=== PATIENT | male | born 1960 ===

== ENCOUNTER 2016-06-23 23:31 | Emergency (ER) | payer MEDICAID, OTHER ==
[2016-06-24 00:23] VITALS: O2SAT 98
[2016-06-24 06:15] VITALS: BP 167/90; PULSE 97; RESP 16; TEMP 98.3
--- NOTE | 2016-06-24 06:16 | C.PDOC ---
History Of Present Illness 56 y/o male c/o rash and all over itching. pt lives in nursing home and may be getting bitten by bugs. denies fevers. Time Seen by Provider: 06/24/16 04:38 Chief Complaint (Nursing): Substance Abuse Past Medical History Reviewed: Historical Data, Nursing Documentation, Vital Signs Vital Signs: Last Vital Signs Temp 98.3 F 06/24/16 06:14 Pulse 97 H 06/24/16 06:14 Resp 16 06/24/16 06:14 BP 167/90 H 06/24/16 06:14 Pulse Ox 98 06/24/16 06:26 - Medical History PMH: Diabetes, Graves' Disease, HTN, Seizures (alcohol related) Denies: Chronic Kidney Disease Surgical History: No Surg Hx - [facility] Procedures DETOXIFICATION SERVICES FOR SUBSTANCE ABUSE TREATMENT (07/11/15) INJECT/INFUSE NEC (03/22/13) Family History: States: Unknown Family Hx - Social History Hx Tobacco Use: No Hx Alcohol Use: Yes Hx Substance Use: No - Immunization History Hx Tetanus Toxoid Vaccination: No Hx Influenza Vaccination: No Hx Pneumococcal Vaccination: No Review Of Systems Constitutional: Negative for: Fever, Chills Cardiovascular: Negative for: Chest Pain, Palpitations Respiratory: Negative for: Cough, Shortness of Breath Gastrointestinal: Negative for: Nausea, Vomiting, Abdominal Pain Musculoskeletal: Negative for: Neck Pain Skin: Positive for: Rash Neurological: Negative for: Weakness, Numbness Physical Exam - Physical Exam Appears: Non-toxic, No Acute Distress, Unkempt Skin: Normal Color, Warm, Dry, Other (scattered excoriated areas to arms and lower left abdomen, some 1-2 mm erythematous papules to abdomen, scattered patches of skin tunnel man in color. ) Head: Atraumatic, Normacephalic Chest: Symmetrical, No Deformity Cardiovascular: No Rhythm Regular, Murmur Respiratory: Normal Breath Sounds, No Rales, No Rhonchi, No Wheezing ED Course And Treatment O2 Sat by Pulse Oximetry: 98 Medical Decision Making Medical Decision Making: pt slept comfortably all night. will give rx for permetherin. f/u med clinic. Disposition Counseled Patient/Family Regarding: Diagnosis, Need For Followup, Rx Given - Disposition Referrals: [facility] [Outside] [facility] [Outside] Disposition: HOME/ ROUTINE Disposition Time: 06:25 Condition: STABLE Additional Instructions: Use cream as directed. Wash bedding and all clothes in hot water. Follow up [facility] medical clinic. Prescriptions: Permethrin [Elimite] 60 gm TP ONCE #1 cream..g. Instructions: Scabies (ED) Forms: General Discharge Instructions - Clinical Impression Clinical Impression: Scabies
== END 2016-06-24 06:51 | disposition home or self-care (01) ==
LOC: C.ER 23:31
DX: B86 Scabies (principal)

== ENCOUNTER 2016-07-08 12:04 | Observation (INO) | payer MEDICAID, OTHER ==
[2016-07-08 13:24] LABS: EOS # 0.1 K/uL (0.0-0.7); LYMPH # 1.3 K/uL (1.0-4.3); MONO # 0.4 K/uL (0.0-0.8); WHITE BLOOD COUNT 3.2 K/uL (4.8-10.8)
[2016-07-08 13:28] LABS: BASO % 1.5 % (0.0-2.0); EOS % 2.7 % (0.0-4.0); HEMATOCRIT 32.9 % (35.0-51.0); MEAN CELL VOLUME 72.6 fL (80.0-94.0); MEAN CORPUSCULAR HEMOGLOBIN 22.7 pg (27.0-31.0); MEAN CORPUSCULAR HGB CONC 31.2 g/dL (33.0-37.0); MEAN PLATELET VOLUME 7.8 fL (7.2-11.7); MONO % 11.2 % (0.0-10.0); NRBC % 0.8 % (0.0-2.0); RED CELL DISTRIBUTION WIDTH 15.9 % (11.5-14.5)
--- NOTE | 2016-07-08 13:29 | C.PDOC ---
History Of Present Illness 56 y/o male presents to the ED with complains of chest pain. Pt is a poor historian. Denies any other complaints. Chief Complaint (Nursing): Chest Pain History Per: Patient Current Symptoms Are (Timing): Still Present Severity: Mild Quality: "Pain" Alleviating Factors: None Recent travel outside of the [place]: No Past Medical History Reviewed: Historical Data, Nursing Documentation, Vital Signs Vital Signs: Last Vital Signs Temp 98.5 F 07/08/16 18:07 Pulse 80 07/08/16 18:07 Resp 18 07/08/16 18:07 BP 146/77 07/08/16 18:07 Pulse Ox 97 07/08/16 18:50 - Medical History PMH: Diabetes, Graves' Disease, HTN, Seizures (alcohol related) - [facility] Procedures DETOXIFICATION SERVICES FOR SUBSTANCE ABUSE TREATMENT (07/11/15) INJECT/INFUSE NEC (03/22/13) Family History: States: Unknown Family Hx - Social History Hx Tobacco Use: No Hx Alcohol Use: Yes Hx Substance Use: No - Immunization History Hx Tetanus Toxoid Vaccination: No Hx Influenza Vaccination: No Hx Pneumococcal Vaccination: No Review Of Systems Review Of Systems: ROS cannot be obtained secondary to pt's inabilty to answer questions. Cardiovascular: Positive for: Chest Pain Physical Exam - Physical Exam Appears: Non-toxic, No Acute Distress, Other (alcohol on breath) Skin: Warm, Dry, No Rash Head: Atraumatic, Normacephalic Neck: Normal ROM Chest: Symmetrical, No Tenderness Cardiovascular: Rhythm Regular, No Murmur Respiratory: Normal Breath Sounds, No Rales, No Rhonchi, No Wheezing Gastrointestinal/Abdominal: Soft, No Tenderness Extremity: Normal ROM Extremity: Bilateral: Atraumatic Neurological/Psych: Oriented x3 ED Course And Treatment - Laboratory Results Result Diagrams: 07/08/16 13:18 07/08/16 13:18 ECG: Interpreted By Me, Viewed By Me ECG Rhythm: Sinus Rhythm Interpretation Of ECst degree AV block Rate From EC (BPM) O2 Sat by Pulse Oximetry: 97 (on room air) Progress Note: Plan: EKG, labs, CXR, zofran, IV fluids Medical Decision Making Medical Decision Makin:50pm: Patient walking around ED. Patient to be discharged with follow up instructions. ED OBSERVATION Discharge: Yes - Observation admission statement Patient is being placed in observation because:: alcohol intoxication - Goals of Observation Goals of observation are:: sobriety Disposition - Disposition Disposition Time: 19:00 Condition: IMPROVED - Clinical Impression Clinical Impression: Alcohol intoxication - Scribe Statement The provider has reviewed the documentation as recorded by the Deepak Saxena Provider Attestation: All medical record entries made by the Deepak were at my direction and personally dictated by me. I have reviewed the chart and agree that the record accurately reflects my personal performance of the history, physical exam, medical decision making, and the department course for this patient. I have also personally directed, reviewed, and agree with the discharge instructions and disposition.
[2016-07-08 13:36] LABS: CHLORIDE 101 mmol/L (98-107)
[2016-07-08 13:37] LABS: POTASSIUM 3.7 mmol/L (3.6-5.2); SODIUM 147 mmol/L (132-148)
[2016-07-08 13:39] LABS: ALKALINE PHOSPHATASE 73 U/L (38-126); ALT/SGPT 26 U/L (21-72); AST/SGOT 76 U/L (17-59); BILIRUBIN,TOTAL 0.5 mg/dL (0.2-1.3); BLOOD UREA NITROGEN 11 mg/dL (9-20); CARBON DIOXIDE 27 mmol/L (22-30); GFR AFRICAN-AMERICAN > 60; GLUCOSE,RANDOM 129 mg/dL (75-110); TOTAL PROTEIN 7.9 g/dL (6.3-8.3)
[2016-07-08 13:40] LABS: CALCIUM 7.7 mg/dl (8.6-10.4)
[2016-07-08 13:50] LABS: ALCOHOL SERUM 494 mg/dl (0-10)
[2016-07-08 15:24] VITALS: PULSE 80
--- NOTE | 2016-07-08 16:28 | RAD ---
HISTORY: chest pain COMPARISON: Chest x-ray performed 07/11/15 TECHNIQUE: Chest, one view. FINDINGS: Examination limited by habitus, hypoinflation, and patient obliquity. LUNGS: Mild bibasilar atelectasis. Please note that chest x-ray has limited sensitivity for the detection of pulmonary masses. PLEURA: No significant pleural effusion identified. No definite pneumothorax . CARDIOVASCULAR: Heart size appears within normal limits. OSSEOUS STRUCTURES: Degenerative changes of the spine. Right acromioclavicular arthropathy. The left acromioclavicular joint is excluded from view. VISUALIZED UPPER ABDOMEN: Unremarkable. OTHER FINDINGS: None. IMPRESSION: Mild bibasilar atelectasis.
[2016-07-08 18:08] VITALS: BP 146/77; RESP 18; TEMP 98.5
[2016-07-08 18:50] VITALS: O2SAT 97
--- NOTE | 2016-07-10 15:16 | CARD ---
APPROVED REPORT EKG Measurement Heart [id number] <Conclusion> Sinus rhythm with 1st degree AV block Otherwise normal ECG
== END 2016-07-08 18:50 | disposition home or self-care (01) ==
LOC: C.ER 12:04 → C.9OBSV 13:54
PROVIDERS: ADMIT Emergency Medicine; ATTEND Emergency Medicine
DX: F10.120 Alcohol abuse with intoxication, uncomplicated (principal); Y90.8 Blood alcohol level of 240 mg/100 ml or more; E11.9 Type 2 diabetes mellitus without complications; I10 Essential (primary) hypertension
CPT/HCPCS: 71010; 80053; 80320; 84484; 85025; 96374; G0378; J2405

== ENCOUNTER 2016-07-10 17:53 | Observation (INO) | payer MEDICAID ==
--- NOTE | 2016-07-10 18:39 | C.PDOC ---
History Of Present Illness 56 year old caty male presents to the ED seeking via EMS for public intoxication. Patient denies any other complaints at this time. Time Seen by Provider: 07/10/16 18:24 Chief Complaint (Nursing): Substance Abuse History Per: Patient History/Exam Limitations: no limitations Onset/Duration Of Symptoms: Hrs Current Symptoms Are (Timing): Still Present Past Medical History Reviewed: Historical Data, Nursing Documentation, Vital Signs Vital Signs: Last Vital Signs Temp 98.0 F 07/10/16 23:00 Pulse 72 07/10/16 23:00 Resp 18 07/10/16 23:00 BP 137/65 07/10/16 23:00 Pulse Ox 100 07/10/16 23:00 - Medical History PMH: Diabetes, Graves' Disease, HTN, Seizures (alcohol related) - [facility] Procedures DETOXIFICATION SERVICES FOR SUBSTANCE ABUSE TREATMENT (07/11/15) INJECT/INFUSE NEC (03/22/13) Family History: States: Unknown Family Hx - Social History Hx Tobacco Use: No Hx Alcohol Use: Yes Hx Substance Use: No Review Of Systems Constitutional: Negative for: Fever, Chills, Sweats Gastrointestinal: Negative for: Abdominal Pain, Diarrhea Physical Exam - Physical Exam Appears: Non-toxic, No Acute Distress, Other (EtOH on breath ) Skin: Warm, Dry Head: Normacephalic Neck: Normal ROM, Supple Chest: Symmetrical, No Deformity Cardiovascular: Rhythm Regular Respiratory: No Rales, No Rhonchi, No Wheezing Gastrointestinal/Abdominal: Soft, No Tenderness, No Guarding Extremity: Normal ROM Neurological/Psych: Oriented x3 ED Course And Treatment O2 Sat by Pulse Oximetry: 100 ED OBSERVATION Date of observation admission: 07/10/16 Time of observation admission: 18:38 - Observation admission statement Patient is being placed in observation because:: Lack of community services - Goals of Observation Goals of observation are:: Safe place to sober up - Progress Note Progress Note: 07/10/16 18:38 Pt remained stable and became progressively more sober 07/11/16 00:13 Still not stable for dc plan few more hours of sleep Disposition - Disposition Disposition Time: 00:18 Condition: FAIR - Clinical Impression Clinical Impression: Alcohol abuse with intoxication, Homeless single person - Scribe Statement The provider has reviewed the documentation as recorded by the Scribe Virginia Richmond All medical record entries made by the Scribe were at my direction and personally dictated by me. I have reviewed the chart and agree that the record accurately reflects my personal performance of the history, physical exam, medical decision making, and the department course for this patient. I have also personally directed, reviewed, and agree with the discharge instructions and disposition. Physician Patient Turnover Patient Signed Over To: Skyler Leonard Handoff Comments: Pending sobriety
[2016-07-10 23:59] VITALS: RESP 18; O2SAT 100
[2016-07-11 04:15] VITALS: TEMP 97.5
[2016-07-11 05:33] VITALS: BP 130/78; PULSE 75
== END 2016-07-11 06:21 | disposition home or self-care (01) ==
LOC: C.ER 17:53 → C.9OBSV 18:37
PROVIDERS: ADMIT Emergency Medicine; ATTEND Emergency Medicine
DX: F10.129 Alcohol abuse with intoxication, unspecified (principal); Z59.0 Homelessness; E11.9 Type 2 diabetes mellitus without complications; E05.00 Thyrotoxicosis with diffuse goiter without thyrotoxic crisis or storm; I10 Essential (primary) hypertension; R56.9 Unspecified convulsions
CPT/HCPCS: 82948; 99284; G0378

== ENCOUNTER 2016-07-29 01:45 | Emergency (ER) | payer MEDICAID, OTHER ==
[2016-07-29 01:57] VITALS: PULSE 76; RESP 20
--- NOTE | 2016-07-29 02:03 | C.PDOC ---
History Of Present Illness Patient was brought into ER via EMS for acute ETOH intoxication. Patient denies any physical complaints. Time Seen by Provider: 07/29/16 02:02 Chief Complaint (Nursing): Substance Abuse History Per: Patient History/Exam Limitations: no limitations Onset/Duration Of Symptoms: Hrs Current Symptoms Are (Timing): Still Present Suicide/Self Injury Attempted (Context): None Modifying Factor(s): Alcohol Severity: None Pain Scale Rating Of: 0 Associated Symptoms: denies: Depression, Suicidal Thoughts, Suicidal Plan Involuntary Hold By: None Recent travel outside of the [place]: No Additional History Per: EMS Past Medical History Reviewed: Historical Data, Nursing Documentation, Vital Signs Vital Signs: Last Vital Signs Temp 97.6 F 07/29/16 01:54 Pulse 76 07/29/16 01:54 Resp 20 07/29/16 01:54 BP 164/81 H 07/29/16 01:54 Pulse Ox 99 07/29/16 02:26 - Medical History PMH: Diabetes, Graves' Disease, HTN, Seizures (alcohol related) Surgical History: No Surg Hx - [facility] Procedures DETOXIFICATION SERVICES FOR SUBSTANCE ABUSE TREATMENT (07/11/15) INJECT/INFUSE NEC (03/22/13) Family History: States: No Known Family Hx - Social History Hx Tobacco Use: No Hx Alcohol Use: Yes Hx Substance Use: No - Immunization History Hx Tetanus Toxoid Vaccination: No Hx Influenza Vaccination: No Hx Pneumococcal Vaccination: No Review Of Systems Constitutional: Negative for: Fever, Chills Gastrointestinal: Negative for: Nausea, Vomiting, Diarrhea Neurological: Positive for: Other (ETOH intoxication) Physical Exam - Physical Exam Appears: Well, Non-toxic, Other (ETOH on breath) Skin: Warm, Dry Oral Mucosa: Moist Chest: Symmetrical, No Tenderness Cardiovascular: Rhythm Regular, No Murmur Respiratory: No Rales, No Rhonchi, No Wheezing Gastrointestinal/Abdominal: Soft, No Tenderness Neurological/Psych: Oriented x3 ED Course And Treatment O2 Sat by Pulse Oximetry: 99 (Room air) Pulse Ox Interpretation: Normal Reevaluation Time: 05:18 Reassessment Condition: Improved ED OBSERVATION Discharge: Yes Date of observation admission: 07/29/16 Time of observation admission: 02:26 - Observation admission statement Patient is being placed in observation because:: Acute ETOH intoxication - Goals of Observation Goals of observation are:: Sobriety Disposition Counseled Patient/Family Regarding: Studies Performed, Diagnosis, Need For Followup - Disposition Referrals: [facility] [Outside] Disposition: HOME/ ROUTINE Disposition Time: 02:02 Condition: FAIR Instructions: Alcohol Intoxication (DC) - Clinical Impression Clinical Impression: Alcohol dependence, Alcohol intoxication - Scribe Statement The provider has reviewed the documentation as recorded by the Scribe Benson Child All medical record entries made by the Scribe were at my direction and personally dictated by me. I have reviewed the chart and agree that the record accurately reflects my personal performance of the history, physical exam, medical decision making, and the department course for this patient. I have also personally directed, reviewed, and agree with the discharge instructions and disposition.
[2016-07-29 06:44] VITALS: BP 153/65; TEMP 98; O2SAT 96
== END 2016-07-29 06:44 | disposition home or self-care (01) ==
LOC: C.ER 01:45
DX: F10.229 Alcohol dependence with intoxication, unspecified (principal); Y90.9 Presence of alcohol in blood, level not specified

== ENCOUNTER 2016-08-02 12:20 | Inpatient (IN) | payer MEDICAID, OTHER ==
[2016-08-02 13:14] LABS: BASO # 0.1 K/uL (0.0-0.2); BASO % 2.1 % (0.0-2.0); EOS # 0.1 K/uL (0.0-0.7); EOS % 4.2 % (0.0-4.0); HEMATOCRIT 33.2 % (35.0-51.0); LYMPH % 33.1 % (20.0-40.0); MEAN CELL VOLUME 72.6 fL (80.0-94.0); MEAN CORPUSCULAR HEMOGLOBIN 22.7 pg (27.0-31.0); MEAN CORPUSCULAR HGB CONC 31.3 g/dL (33.0-37.0); MEAN PLATELET VOLUME 7.3 fL (7.2-11.7); MONO # 0.4 K/uL (0.0-0.8); MONO % 12.8 % (0.0-10.0); NRBC % 0.2 % (0.0-2.0); RED CELL DISTRIBUTION WIDTH 16.3 % (11.5-14.5); WHITE BLOOD COUNT 3.2 K/uL (4.8-10.8)
[2016-08-02 13:19] LABS: CHLORIDE 102 mmol/L (98-107); SODIUM 143 mmol/L (132-148)
[2016-08-02 13:20] LABS: POTASSIUM 3.5 mmol/L (3.6-5.2)
[2016-08-02 13:21] LABS: GFR AFRICAN-AMERICAN > 60
[2016-08-02 13:22] LABS: ALB/GLOB RATIO 1.1 (1.0-2.1); ALKALINE PHOSPHATASE 88 U/L (38-126); ALT/SGPT 42 U/L (21-72); AST/SGOT 74 U/L (17-59); BILIRUBIN,TOTAL 0.3 mg/dL (0.2-1.3); BLOOD UREA NITROGEN 7 mg/dL (9-20); CARBON DIOXIDE 27 mmol/L (22-30); GLUCOSE,RANDOM 114 mg/dL (75-110); TOTAL PROTEIN 8.7 g/dL (6.3-8.3)
[2016-08-02 13:23] LABS: CALCIUM 8.7 mg/dl (8.6-10.4)
[2016-08-02 13:26] LABS: INR 1.1
[2016-08-02 13:42] LABS: ALCOHOL SERUM 374 mg/dl (0-10)
--- NOTE | 2016-08-02 13:44 | RAD ---
PROCEDURE: CHEST RADIOGRAPH, 1 VIEW HISTORY: Chest pain COMPARISON: None available. FINDINGS: LUNGS: Mild venous congestion. Elevated right hemidiaphragm. Upper lobe granulomatous changes. Biapical pleural thickening with upper lobe granulomatous changes. Nodular density projecting over the lateral aspect of the right upper lung zone likely represents end of the rib. PLEURA: No pneumothorax or pleural fluid seen. CARDIOVASCULAR: Cardiomegaly. OSSEOUS STRUCTURES: Degenerative changes in the spine with paravertebral osteophytes. Mild diastases of the left acromioclavicular joint space. VISUALIZED UPPER ABDOMEN: Normal. OTHER FINDINGS: None. IMPRESSION: Mild venous congestion. Elevated right hemidiaphragm. Upper lobe granulomatous changes. Biapical pleural thickening with upper lobe granulomatous changes. Nodular density projecting over the lateral aspect of the right upper lung zone likely represents end of the rib.
[2016-08-02 14:34] LABS: URINE BILIRUBIN NEGATIVE (NEGATIVE); URINE BLOOD 1+ (NEGATIVE); URINE COLOR Straw (YELLOW); URINE GLUCOSE (UA) NORMAL (Normal); URINE KETONE NEGATIVE (NEGATIVE); URINE LEUKOCYTE ESTERASE NEG Leu/uL (Negative); URINE PROTEIN 1+ mg/dL (NEGATIVE); URINE UROBILINOGEN NORMAL mg/dL (0.2-1.0); WBC URINE < 1 /hpf (0-5)
[2016-08-02 14:52] LABS: RBC URINE 1 /hpf (0-3)
--- NOTE | 2016-08-02 16:13 | C.PDOC ---
History Of Present Illness 56 y/o male presents to the ED with complains of chest pain and lower extremity swelling. Pt intoxicated; multiple previous visits to ED for alcohol intoxication. Denies SOB, fever, vomiting or any other complaints. Time Seen by Provider: 08/02/16 12:42 Chief Complaint (Nursing): Chest Pain History Per: Patient History/Exam Limitations: no limitations Onset/Duration Of Symptoms: Days Current Symptoms Are (Timing): Still Present Severity: Moderate Quality: "Pain" Alleviating Factors: None Recent travel outside of the [place]: No Past Medical History Reviewed: Historical Data, Nursing Documentation, Vital Signs Vital Signs: Last Vital Signs Temp 98 F 08/02/16 17:38 Pulse 93 H 08/02/16 17:38 Resp 18 08/02/16 17:38 BP 164/80 H 08/02/16 17:38 Pulse Ox 97 08/02/16 17:38 - Medical History PMH: Diabetes, Graves' Disease, HTN, Seizures (alcohol related) - [facility] Procedures DETOXIFICATION SERVICES FOR SUBSTANCE ABUSE TREATMENT (07/11/15) INJECT/INFUSE NEC (03/22/13) Family History: States: Unknown Family Hx - Social History Hx Tobacco Use: No Hx Alcohol Use: Yes Hx Substance Use: No - Immunization History Hx Tetanus Toxoid Vaccination: No Hx Influenza Vaccination: No Hx Pneumococcal Vaccination: No Review Of Systems Except As Marked, All Systems Reviewed And Found Negative. Constitutional: Negative for: Fever Cardiovascular: Positive for: Chest Pain Respiratory: Negative for: Shortness of Breath Gastrointestinal: Negative for: Vomiting Musculoskeletal: Positive for: Other (lower extremity swelling) Physical Exam - Physical Exam Appears: Non-toxic, No Acute Distress, Other (Intoxicated, alcohol on breath, slurred speech) Skin: Warm, Dry, No Rash Head: Atraumatic, Normacephalic Neck: Normal, Normal ROM, Supple Chest: Symmetrical, No Tenderness Cardiovascular: Rhythm Regular, No Murmur Respiratory: Normal Breath Sounds, No Rales, No Rhonchi, No Wheezing Gastrointestinal/Abdominal: Normal Exam, Soft, No Tenderness Extremity: Normal ROM, Pedal Edema (bilateral) Extremity: Bilateral: Atraumatic Pulses: Left Dorsalis Pedis: Normal, Right Dorsalis Pedis: Normal Neurological/Psych: Oriented x3, Normal Motor, Normal Sensation ED Course And Treatment - Laboratory Results Result Diagrams: 08/02/16 13:06 08/02/16 13:06 ECG Rhythm: Sinus Rhythm, Nonspecific Changes Interpretation Of ECG: Q in V1 and V2 Rate From EC O2 Sat by Pulse Oximetry: 97 (room air) Pulse Ox Interpretation: Normal - Other Rad CXR X-Ray: Viewed By Me, Read By Radiologist Interpretation: Accession No. : [id number]. Patient Name / ID : KP CROSS / [id number]. Exam Date : 08/02/2016 12:52:40 ( Approved ). Study Comment : Sex / Age : M / 56Y. Creator : Matthew Sapp MD. Dictator : Matthew Sapp MD. Measurement Superintendent : Fill Plant Operator : Matthew Sapp MD. Approver2 : Report Date : 08/02/2016 13:42:17. My Comment : . PROCEDURE: CHEST RADIOGRAPH, 1 VIEW. HISTORY: Chest pain. COMPARISON: None available. FINDINGS: LUNGS: Mild venous congestion. Elevated right hemidiaphragm. Upper lobe granulomatous changes. Biapical pleural thickening with upper lobe granulomatous changes. Nodular density projecting over the lateral aspect of the right upper lung zone likely represents end of the rib. PLEURA: No pneumothorax or pleural fluid seen. CARDIOVASCULAR: Cardiomegaly. OSSEOUS STRUCTURES: Degenerative changes in the spine with paravertebral osteophytes. Mild diastases of the left acromioclavicular joint space. VISUALIZED UPPER ABDOMEN: Normal. OTHER FINDINGS: None. IMPRESSION: Mild venous congestion. Elevated right hemidiaphragm. Upper lobe granulomatous changes. Biapical pleural thickening with upper lobe granulomatous changes. Nodular density projecting over the lateral aspect of the right upper lung zone likely represents end of the rib. Progress Note: b/l LE duplex negative for DVT. case was d/w who accepted case to [facility] for observation. Medical Decision Making Medical Decision Making: Plan: labs, CXR, UA, venous duplex bilateral lower ext Lower extremity duplex negative for DVT. Texted Ashlyn Tobias for admission. Disposition - Disposition Disposition: HOSPITALIZED Disposition Time: 16:45 Condition: FAIR - Clinical Impression Clinical Impression: Chest pain, Lower extremity edema, Alcohol intoxication - PA / [employer] / Resident Statement MD/DO has reviewed & agrees with the documentation as recorded. - Scribe Statement The provider has reviewed the documentation as recorded by the Scribe Abdon Saxena All medical record entries made by the Scribe were at my direction and personally dictated by me. I have reviewed the chart and agree that the record accurately reflects my personal performance of the history, physical exam, medical decision making, and the department course for this patient. I have also personally directed, reviewed, and agree with the discharge instructions and disposition.
[2016-08-02] MEDS: Enoxaparin 40 mg Syringe SC SCH (20:40)
--- NOTE | 2016-08-02 21:26 | VASCLAB ---
PROCEDURE: Lower Extremity Venous Duplex Exam. HISTORY: LE edema, r/o DVT PRIORS: None. TECHNIQUE: Bilateral common femoral, femoral, popliteal and posterior tibial, peroneal and great saphenous veins were evaluated. Flow was assessed with color Doppler, compressibility, assessment of phasic flow and augmentation response. Report prepared by Benson Navarro, [facility], RVT FINDINGS: RIGHT: 1. Common Femoral Vein: 1.1. Compressibility - Fully compressible: Thrombus - None : Flow - Phasic: Augmentation -Normal: Reflux - None. 2. Femoral Vein: 2.1. Compressibility - Fully compressible: Thrombus - None : Flow - Phasic: Augmentation -Normal: Reflux - None. 3. Popliteal Vein: 3.1. Compressibility - Fully compressible: Thrombus - None : Flow - Phasic: Augmentation -Normal: Reflux - None. 4. Posterior Tibial Vein: 4.1. Compressibility - Fully compressible: Thrombus - None: Flow - Phasic: Augmentation -Normal: Reflux - None. 5. Peroneal Vein: 5.1. Compressibility - Fully compressible: Thrombus - None: Flow - Phasic: Augmentation -Normal: Reflux - None. 6. Great Saphenous Vein: 6.1. Compressibility - Fully compressible: Thrombus - None: Flow - Phasic: Augmentation - Normal: Reflux - None. LEFT: 1. Common Femoral Vein: 1.1. Compressibility - Fully compressible: Thrombus - None: Flow - Phasic: Augmentation -Normal: Reflux - None. 2. Femoral Vein: 2.1. Compressibility - Fully compressible: Thrombus - None: Flow - Phasic: Augmentation -Normal: Reflux - None. 3. Popliteal Vein: 3.1. Compressibility - Fully compressible: Thrombus - None : Flow - Phasic: Augmentation -Normal: Reflux - None. 4. Posterior Tibial Vein: 4.1. Compressibility - Fully compressible: Thrombus - None: Flow - Phasic: Augmentation -Normal: Reflux - None. 5. Peroneal Vein: 5.1. Compressibility - Fully compressible: Thrombus - None: Flow - Phasic: Augmentation -Normal: Reflux - None. 6. Great Saphenous Vein: 6.1. Compressibility - Fully compressible: Thrombus - None: Flow - Phasic: Augmentation - Normal: Reflux - None. OTHER FINDINGS: Right: Soft tissue edema. Left: Soft tissue edema. IMPRESSION: Right: No evidence of deep or superficial vein thrombosis of the right lower extremity. Normal valve function noted of the right side. Left: No evidence of deep or superficial vein thrombosis of the left lower extremity. Normal valve function noted of the left side.
[2016-08-03] MEDS ORDERED: Potassium Chloride 20 mEq ER Tab PO STA (08:43)
[2016-08-03] MEDS ORDERED: Multiple Vitamins Tab PO SCH (10:00)
[2016-08-03] MEDS: Enoxaparin 40 mg Syringe SC SCH (10:07)
[2016-08-03] MEDS: Pantoprazole 40 mg EC Tab PO SCH (10:07)
[2016-08-03 10:33] LABS: PHOSPHOROUS 3.5 mg/dL (2.5-4.5)
[2016-08-03] MEDS ORDERED: Metoprolol 1 mg/ml Inj IVP PRN (12:00)
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
[2016-08-03] MEDS: Magnesium Sulfate 1 gm in D5W 1 GM/100 ML BAG IVPB SCH ×2 (13:58→14:20)
[2016-08-03] MEDS ORDERED: Magnesium Sulfate 1 gm in D5W 1 GM/100 ML BAG IVPB SCH (14:00)
[2016-08-03] MEDS ORDERED: Magnesium Sulfate 1 gm in D5W 1 GM/100 ML BAG IVPB ONE (15:44)
--- NOTE | 2016-08-03 16:02 | CP.PCM.HP ---
History of Present Illness - History of Present Illness History of Present Illness: 56 years old male with past medical history of hypertension diabetes Graves' disease seizures, presented to the emergency department with complaint of recent onset moderate chest pain, lower limb swelling. Past history of multiple visits to emergency department for alcohol intoxication. No fever, nausea, vomiting. No shortness of breath, palpitation. Present on Admission - Present on Admission Any Indicators Present on Admission: No Past Patient History - Infectious Disease Hx of Infectious Diseases: None - Past Medical History & Family History Past Medical History?: Yes - Past Social History Smoking Status: Never Smoked - CARDIAC Hx Cardiac Disorders: Yes Hx Hypertension: Yes - PULMONARY Hx Respiratory Disorders: No - NEUROLOGICAL Hx Neurological Disorder: Yes Hx Seizures: Yes (alcohol related) - HEENT Hx HEENT Problems: No - RENAL Hx Chronic Kidney Disease: No - ENDOCRINE/METABOLIC Hx Endocrine Disorders: Yes Hx Hyperthyroidism: Yes - HEMATOLOGICAL/ONCOLOGICAL Hx Blood Disorders: No - INTEGUMENTARY Hx Dermatological Problems: No - MUSCULOSKELETAL/RHEUMATOLOGICAL Hx Musculoskeletal Disorders: Yes Hx Falls: No - GASTROINTESTINAL Hx Gastrointestinal Disorders: No - GENITOURINARY/GYNECOLOGICAL Hx Genitourinary Disorders: No - PSYCHIATRIC Hx Psychophysiologic Disorder: No Hx Substance Use: No Other/Comment: pt states "I drink a pint of vodka daily" - SURGICAL HISTORY Hx Surgeries: No - ANESTHESIA Hx Anesthesia: No Meds Allergies/Adverse Reactions: Allergies Allergy/AdvReac Type Severity Reaction Status Date / Time No Known Allergies Allergy Verified 10/12/16 13:02 Physical Exam - Constitutional Appears: Well - Head Exam Head Exam: ATRAUMATIC, NORMAL INSPECTION, NORMOCEPHALIC - Eye Exam Eye Exam: EOMI, Normal appearance, PERRL Pupil Exam: NORMAL ACCOMODATION, PERRL - ENT Exam ENT Exam: Mucous Membranes Moist, Normal Exam - Neck Exam Neck exam: Positive for: Normal Inspection - Respiratory Exam Respiratory Exam: Decreased Breath Sounds - Cardiovascular Exam Cardiovascular Exam: REGULAR RHYTHM, +S1, +S2 - GI/Abdominal Exam GI & Abdominal Exam: Diminished Bowel Sounds, Soft - Rectal Exam Rectal Exam: Deferred Results - Vital Signs Recent Vital Signs: Last Vital Signs Temp 98.3 F 08/03/16 07:02 Pulse 99 H 08/03/16 07:02 Resp 18 08/03/16 07:02 BP 196/91 H 08/03/16 07:02 Pulse Ox 97 08/03/16 07:02 - Labs Result Diagrams: 08/10/16 06:12 08/10/16 06:12 Labs: Laboratory Results - last 24 hr 08/02/16 08/03/16 22:20 04:16 Phosphorus 3.5 Magnesium 1.0 L* Total Creatine Kinase 301 H 599 H CK-MB (Mass) 4.03 H 3.74 H Troponin I, Quant 0.0220 0.0150 Assessment & Plan (1) Acute bronchitis Status: Acute (2) Acute pancreatitis Status: Acute (3) Alcohol abuse Status: Acute (4) Alcohol abuse with intoxication Status: Acute (5) Alcohol dependence Status: Acute (6) Alcohol intoxication Status: Acute (7) Alcohol withdrawal syndrome Status: Acute (8) Alcoholic gastritis Status: Acute (9) Bed bug bite Status: Acute (10) Blood glucose abnormal Status: Acute (11) Chest pain Status: Acute (12) Chest pain Status: Acute (13) Chest pain Status: Acute (14) Chronic knee pain Status: Acute (15) Closed right tibial fracture Status: Acute (16) Dermatitis Status: Acute (17) Diarrhea Status: Acute (18) Elevated lipase Status: Acute (19) Encounter for medical assessment Status: Acute (20) Encounter for removal of sutures Status: Acute (21) Epigastric abdominal pain Status: Acute (22) Falls Status: Acute (23) GI bleed Status: Acute (24) Head injury Status: Acute (25) Head injury, acute Status: Acute (26) Homeless single person Status: Acute (27) Hypokalemia Status: Acute (28) Hypomagnesemia Status: Acute (29) Hyponatremia Status: Acute (30) LFT elevation Status: Acute (31) Laceration Status: Acute (32) Leg pain Status: Acute (33) Lower extremity edema Status: Acute (34) Microcytic anemia Status: Acute (35) Non-cardiac chest pain Status: Acute (36) Opioid abuse Status: Acute (37) Pancreatitis Status: Acute (38) Patient left before treatment completed Status: Acute (39) Pneumonia Status: Acute (40) Prophylactic measure Status: Acute (41) Removal of staple Status: Acute (42) Scabies Status: Acute (43) Syncope Status: Acute (44) Toe fracture, left Status: Acute (45) HTN (hypertension) Status: Chronic (46) Impaired glucose tolerance Status: Chronic - Assessment and Plan (Free Text) Plan: Labs noted Cardio consult EKG, chest x-ray noted Blood pressure control Seizures precautions
[2016-08-03] MEDS ORDERED: Folic Acid 1 MG, Thiamine 100 MG, Multivitamin (MVI) 10 ML in Dextrose 5% In Water 1,00... IV SCH (21:00)
[2016-08-03] MEDS ORDERED: Metoprolol 1 mg/ml Inj IVP ONE (21:06)
[2016-08-03] MEDS ORDERED: Folic Acid 1 MG, Thiamine 100 MG, Multivitamin (MVI) 10 ML in Dextrose 5% In Water 1,00... IV PRN (21:15)
[2016-08-04 08:37] LABS: BASO % 0.6 % (0.0-2.0); EOS # 0.1 K/uL (0.0-0.7); EOS % 1.5 % (0.0-4.0); HEMATOCRIT 35.7 % (35.0-51.0); LYMPH % 28.3 % (20.0-40.0); MEAN CELL VOLUME 72.2 fL (80.0-94.0); MEAN CORPUSCULAR HEMOGLOBIN 22.9 pg (27.0-31.0); MEAN CORPUSCULAR HGB CONC 31.7 g/dL (33.0-37.0); MEAN PLATELET VOLUME 8.6 fL (7.2-11.7); MONO # 0.9 K/uL (0.0-0.8); MONO % 12.8 % (0.0-10.0); NRBC % 0.3 % (0.0-2.0); RED CELL DISTRIBUTION WIDTH 16.3 % (11.5-14.5)
[2016-08-04 08:50] LABS: CHLORIDE 90 mmol/L (98-107)
[2016-08-04 08:51] LABS: POTASSIUM 3.3 mmol/L (3.6-5.2)
[2016-08-04 08:53] LABS: ALB/GLOB RATIO 0.9 (1.0-2.1); ALKALINE PHOSPHATASE 89 U/L (38-126); ALT/SGPT 30 U/L (21-72); AST/SGOT 79 U/L (17-59); BILIRUBIN,TOTAL 1.5 mg/dL (0.2-1.3); BLOOD UREA NITROGEN 14 mg/dL (9-20); CARBON DIOXIDE 20 mmol/L (22-30); GFR AFRICAN-AMERICAN > 60; GLUCOSE,RANDOM 159 mg/dL (75-110); TOTAL PROTEIN 9.5 g/dL (6.3-8.3)
[2016-08-04 08:54] LABS: CALCIUM 9.3 mg/dl (8.6-10.4)
[2016-08-04] MEDS ORDERED: Potassium Chloride 20 mEq ER Tab PO STA (09:33)
--- NOTE | 2016-08-04 09:42 | CP.PCM.PN ---
<Danna Barnes - Last Filed: 08/04/16 09:39> Subjective - Date & Time of Evaluation Date of Evaluation: 08/04/16 Time of Evaluation: 09:39 - Subjective Subjective: PGY-[address] Kilgore Pt seen and examined, on restraints. open eyes spontaneous but confused Objective - Vital Signs/Intake and Output Vital Signs (last 24 hours): Temp Pulse Resp BP Pulse Ox 98.2 F 109 H 20 151/84 H 96 08/04/16 00:00 08/04/16 01:25 08/04/16 00:00 08/04/16 00:00 08/04/16 00:00 - Medications Medications: Current Medications Amlodipine Besylate (Norvasc) 10 mg PO DAILY [facility] Aspirin (Aspirin) 325 mg PO DAILY [facility] Last Admin: 08/03/16 10:07 Dose: 325 mg Chlordiazepoxide (Librium) 25 mg PO Q6 [facility] Last Admin: 08/04/16 08:16 Dose: 25 mg Enoxaparin Sodium (Lovenox) 40 mg SC DAILY [facility] Last Admin: 08/03/16 10:07 Dose: 40 mg Folic Acid 1 mg/ Thiamine HCl 100 mg/ Multivitamins/Vitamin C 10 ml/ Dextrose 1 ,011.2 mls @ 100 mls/hr IV .Q10H7M PRN Last Admin: 08/03/16 21:55 Dose: 100 mls/hr Lorazepam (Ativan) 2 mg IVP Q3H PRN PRN Reason: Agitation Last Admin: 08/04/16 07:09 Dose: 2 mg Metoprolol Tartrate (Lopressor) 50 mg PO BID [facility] Pantoprazole Sodium (Protonix Ec Tab) 40 mg PO DAILY [facility] Last Admin: 08/03/16 10:07 Dose: 40 mg - Labs Labs: 08/04/16 08:26 08/04/16 08:26 PT 12.4 SECONDS (9.7-12.2) H 08/02/16 13:06 INR 1.1 08/02/16 13:06 APTT 38 SECONDS (21-34) H 08/02/16 13:06 - Constitutional Appears: Non-toxic, No Acute Distress - Head Exam Head Exam: ATRAUMATIC, NORMOCEPHALIC - Eye Exam Eye Exam: EOMI, Normal appearance, PERRL. absent: Scleral icterus Pupil Exam: NORMAL ACCOMODATION - ENT Exam ENT Exam: Mucous Membranes Moist - Respiratory Exam Respiratory Exam: Clear to Ausculation Bilateral, NORMAL BREATHING PATTERN. absent: Rales, Rhonchi, Wheezes - Cardiovascular Exam Cardiovascular Exam: REGULAR RHYTHM, +S1, +S2. absent: Murmur - GI/Abdominal Exam GI & Abdominal Exam: Soft, Normal Bowel Sounds. absent: Tenderness - Extremities Exam Extremities Exam: Normal Capillary Refill. absent: Pedal Edema - Neurological Exam Additional comments: open eyes spontanously., confused, not follow commands - Psychiatric Exam Psychiatric exam: Flat Affect - Skin Skin Exam: Dry, Warm Assessment and Plan - Assessment and Plan (Free Text) Plan: 56 M, with PMH hypertension, seizures (alcohol related) and alcohol abuse who presents for cardiac evaluation of positional and dypsnic chest pain that started two days ago, continuous, substernal and dull, non-radiating Q waves present in V1 and V2. Prolonged QTc. Sinus tachycardia - likely from alcohol withdrawal - unlikely seizure - No chest pain - continue on tele Chest pain r/o ACS Atypical chest pain - Troponins #1: 0.170, #2: 0.0220, #3: 0.0150. - CK-MB: 5.48, 4.03, 3.74 - EKG: (08/03/16)Normal sinus rhythm, Q waves present in V1 and V2. Prolonged QTc. Possible septal infarct of unknown age. (07/10/16) Normal sinus rhythm, first degree AV block - Echo: (08/20/14): EF: 77%, mild LVH. - UDS: negative. - Potassium repleted - Pending echocardiogram - Pending Lexiscan HTN - improves SBP 150s-160s - Start Lopressor 50 mg PO BID - continue home Norvasc 10 mg PO daily - ASA 325 mg PO daily Lower extremity edema - BNP 60.1 on admission. - CXR on admission showed cardiomegaly with mild venous congestion. - Echo: (08/20/14): EF: 77%, mild LVH. - LE Dopplers negative for DVT b/l. Alcohol withdrawal - CIWA 8 - As per primary team. - Ativan taper. - 1:1 - Seizure precautions. Microcytic anemia, chronic - Asymptomatic - management per primary team Will D/R/S/w Dr. Kilgore. <Dariela Kilgore - Last Filed: 08/11/16 11:47> Objective - Vital Signs/Intake and Output Vital Signs (last 24 hours): Temp Pulse Resp BP Pulse Ox 97.7 F 65 20 137/63 97 08/10/16 15:15 08/10/16 15:15 08/10/16 15:15 08/10/16 15:15 08/10/16 15:15 - Labs Labs: 08/10/16 06:12 08/10/16 06:12 PT 12.4 SECONDS (9.7-12.2) H 08/02/16 13:06 INR 1.1 08/02/16 13:06 APTT 38 SECONDS (21-34) H 08/02/16 13:06 Attending/Attestation - Attestation I have personally seen and examined this patient.: Yes I have fully participated in the care of the patient.: Yes I have reviewed all pertinent clinical information, including history, physical exam and plan: Yes Notes (Text): 08/11/16 11:46 patient in restrains echo no cp
[2016-08-04 09:43] LABS: SODIUM 129 mmol/L (132-148)
[2016-08-04] MEDS: Enoxaparin 40 mg Syringe SC SCH (09:47)
[2016-08-04] MEDS: Pantoprazole 40 mg EC Tab PO SCH (09:47)
--- NOTE | 2016-08-04 18:08 | CP.PCM.PN ---
Subjective - Date & Time of Evaluation Date of Evaluation: 08/04/16 Time of Evaluation: 12:20 - Subjective Subjective: clinically same Objective - Vital Signs/Intake and Output Vital Signs (last 24 hours): Temp Pulse Resp BP Pulse Ox 98.2 F 73 18 136/82 98 08/04/16 15:24 08/04/16 15:24 08/04/16 15:24 08/04/16 15:24 08/04/16 15:24 Intake and Output: 08/04/16 08/04/16 06:59 18:59 Intake Total 240 Output Total 200 Balance 40 - Medications Medications: Current Medications Amlodipine Besylate (Norvasc) 10 mg PO DAILY [facility] Last Admin: 08/04/16 09:47 Dose: 10 mg Aspirin (Aspirin) 325 mg PO DAILY [facility] Last Admin: 08/04/16 09:47 Dose: 325 mg Chlordiazepoxide (Librium) 25 mg PO Q6 [facility] Last Admin: 08/04/16 13:46 Dose: 25 mg Enoxaparin Sodium (Lovenox) 40 mg SC DAILY [facility] Last Admin: 08/04/16 09:47 Dose: 40 mg Folic Acid 1 mg/ Thiamine HCl 100 mg/ Multivitamins/Vitamin C 10 ml/ Dextrose 1 ,011.2 mls @ 100 mls/hr IV .Q10H7M PRN Last Admin: 08/03/16 21:55 Dose: 100 mls/hr Lorazepam (Ativan) 2 mg IVP Q3H PRN PRN Reason: Agitation Last Admin: 08/04/16 17:07 Dose: 2 mg Metoprolol Tartrate (Lopressor) 50 mg PO BID [facility] Last Admin: 08/04/16 09:47 Dose: 50 mg Pantoprazole Sodium (Protonix Ec Tab) 40 mg PO DAILY [facility] Last Admin: 08/04/16 09:47 Dose: 40 mg - Labs Labs: 08/04/16 08:26 08/04/16 08:26 PT 12.4 SECONDS (9.7-12.2) H 08/02/16 13:06 INR 1.1 08/02/16 13:06 APTT 38 SECONDS (21-34) H 08/02/16 13:06 - Constitutional Appears: Well - Head Exam Head Exam: ATRAUMATIC, NORMAL INSPECTION, NORMOCEPHALIC - Eye Exam Eye Exam: EOMI, Normal appearance, PERRL Pupil Exam: NORMAL ACCOMODATION, PERRL - ENT Exam ENT Exam: Mucous Membranes Moist, Normal Exam - Neck Exam Neck Exam: Full ROM, Normal Inspection. absent: Lymphadenopathy - Respiratory Exam Respiratory Exam: Decreased Breath Sounds - Cardiovascular Exam Cardiovascular Exam: REGULAR RHYTHM, +S1, +S2 - GI/Abdominal Exam GI & Abdominal Exam: Soft, Diminished Bowel Sounds - Rectal Exam Rectal Exam: Deferred Assessment and Plan (1) Acute bronchitis Status: Acute (2) Acute pancreatitis Status: Acute (3) Alcohol abuse Status: Acute (4) Alcohol abuse with intoxication Status: Acute (5) Alcohol dependence Status: Acute (6) Alcohol intoxication Status: Acute (7) Alcohol withdrawal syndrome Status: Acute (8) Alcoholic gastritis Status: Acute (9) Bed bug bite Status: Acute (10) Blood glucose abnormal Status: Acute (11) Chest pain Status: Acute (12) Chest pain Status: Acute (13) Chest pain Status: Acute (14) Chronic knee pain Status: Acute (15) Closed right tibial fracture Status: Acute (16) Dermatitis Status: Acute (17) Diarrhea Status: Acute (18) Elevated lipase Status: Acute (19) Encounter for medical assessment Status: Acute (20) Encounter for removal of sutures Status: Acute (21) Epigastric abdominal pain Status: Acute (22) Falls Status: Acute (23) GI bleed Status: Acute (24) Head injury Status: Acute (25) Head injury, acute Status: Acute (26) Homeless single person Status: Acute (27) Hypokalemia Status: Acute (28) Hypomagnesemia Status: Acute (29) Hyponatremia Status: Acute (30) LFT elevation Status: Acute (31) Laceration Status: Acute (32) Leg pain Status: Acute (33) Lower extremity edema Status: Acute (34) Microcytic anemia Status: Acute (35) Non-cardiac chest pain Status: Acute (36) Opioid abuse Status: Acute (37) Pancreatitis Status: Acute (38) Patient left before treatment completed Status: Acute (39) Pneumonia Status: Acute (40) Prophylactic measure Status: Acute (41) Removal of staple Status: Acute (42) Scabies Status: Acute (43) Syncope Status: Acute (44) Toe fracture, left Status: Acute (45) HTN (hypertension) Status: Chronic (46) Impaired glucose tolerance Status: Chronic - Assessment and Plan (Free Text) Plan: Consult cardiology EKG is positive for new Q-wave and prolonged QTC Chest x-ray showed cardiomegaly with mild venous congestion Continue BP monitor Wound care Aspirin Norvasc Lovenox Lopressor
--- NOTE | 2016-08-05 00:23 | PCM.PSYCH ---
Initial Psychiatric Evaluation - Initial Psychiatric Evaluation Chief Complaint (in patient's own words): Pt has no complaints. Seen as a consult for alcohol withdrawal DT History of Present Illness and Precipitating Events: The patient is seen, chart reviewed and case discussed. Consultation was requested for DT. He is a 56-year-old [place], homeless, unemployed male. He is well- known to the ad copy writer from previous detox and medical admissions/consults. The patient suffers from chronic alcohol dependence and he had been admitted numerous times with severe withdrawals where he got into DTs. He also was quite agitated and combative in the past. Today, too, he is agitated, he pulled his IV line 4 times already and they will put soft restraints to prevent self-harm. He is on Librium and Ativan taper and is needed detox. He is confused, hallucinating, disoriented, and his consciousness comes and goes , sleep is very disrupted. He barely communicated with the ad copy writer. Support given Past psych history: Depression Family psych history: Unknown Medical history: Alcohol-related complications, obesity Current Medications: Active Medications Generic Name Dose Route Start Last Admin Trade Name Freq PRN Reason Stop Dose Admin Amlodipine Besylate 10 mg 08/04/16 10:00 08/04/16 09:47 Norvasc PO 10 mg DAILY RAJESH Administration Aspirin 325 mg 08/03/16 10:00 08/04/16 09:47 Aspirin PO 325 mg DAILY RAJESH Administration Chlordiazepoxide 25 mg 08/04/16 08:04 08/05/16 00:06 Librium PO Not Given Q6 RAJESH Enoxaparin Sodium 40 mg 08/02/16 20:10 08/04/16 09:47 Lovenox SC 40 mg DAILY RAJESH Administration Folic Acid 1 mg/ Thiamine HCl 1,011.2 mls @ 100 mls/hr 08/03/16 21:15 21:55 100 mg/ Multivitamins/Vitamin IV 100 mls/hr C 10 ml/ Dextrose .Q10H7M PRN Administration Lorazepam 2 mg 08/03/16 09:20 08/04/16 21:22 Ativan IVP 2 mg Q3H PRN Administration Agitation Metoprolol Tartrate 50 mg 08/04/16 10:00 08/04/16 19:04 Lopressor PO Not Given BID RAJESH Pantoprazole Sodium 40 mg 08/03/16 10:00 08/04/16 09:47 Protonix Ec Tab PO 40 mg DAILY RAJESH Administration Past Psychiatric History - Past Psychiatric History Previous Treatment History: Inpatient Pertinent Medical Hx (Current Medical&Sleep Prob, Allergies): Allergies Allergy/AdvReac Type Severity Reaction Status Date / Time No Known Allergies Allergy Verified 08/02/16 12:27 No Known Home Med 07/08/16 Review of Systems - Neurological Neurological: Confusion, Tremor - Psychiatric Psychiatric: Abnormal Sleep Pattern, Anxiety, Confusion, Hallucinations. absent : Homicidal Ideation, Suicidal Ideation Mental Status Examination - Personal Presentation Personal Presentation: Looks older than stated age - Affect Affect: Blunted - Motor Activity Motor Activity: Psychomotor Agitation - Reliability in Providing Information Reliability in Providing Information: Poor, due to altered mood, Poor, due to cognitve impairment - Speech Speech: Disorganized - Mood Mood: Anxious - Formal Thought Process Formal Thought Process: Hallucinations, Loosening of associations - Hallucinations/Delusions Hallucinations: Visual - Cognitive Functions Orientation: Place Sensorium: Drowsy Attention/Concentration: Easily distracted Abstract Thinking: [place] Estimate of Intelligence: Below average Judgement: Imparied, as evidence by: Poor judgement Memory: Recent impaired, as evidence by: Inability to recall events of the day, Remote impaired as evidenced by: Inability to recall sig life events - Risk Risk: Elopement, Seizure, Withdrawal, Diminished functioning - Limitations Limitations: Living alone DSM 5 DX - DSM 5 DSM 5 Diagnosis: Delirium Tremens (Alcohol withdrawal delirium) Alcohol use d/o - severe - Recommended/Plan of Treatment Treatment Recommendations and Plan of Treatment: DT: - IV ativan or diazepam detox - Hydration - Vitamins - Anti-epileptics as needed - gabapentin - prn Haldol (pt is agitated) -1:1 Alcoholism: - Refer to rehab, i.e. [facility], when medically cleared and completes detox - AA - [place] for abstinence 34 min
--- NOTE | 2016-08-05 04:57 | CARD ---
APPROVED REPORT EXAM: Two-dimensional and M-mode echocardiogram with Doppler and color Doppler. Other Information Quality : Rhythm : NSR Technically limited study due to body habitus.uncooperative RISK FACTORS Hypertension M-Mode DIMENSIONS Left Atrium (MM)3.17 (2.5-4.0cm)Aortic Root3.36 (2.2-3.7cm) Aortic Cusp Exc.1.40 (1.5-2.0cm) Aortic Valve AoV Peak Jetpmnwp387.4cm/Maurice Peak GR.8mmHg Mitral Valve MV E Hqoaicsv78.9cm/sMV A Ghnwgokn13.8cm/sE/A ratio1.0 TDI E/Lateral E'0.0E/Medial E'0.0 LEFT VENTRICLE The left ventricle is normal size. There is normal left ventricular wall thickness. Left ventricle systolic function is normal. The Ejection Fraction is 55-60%. There is normal LV segmental wall motion. The left ventricular diastolic function is normal. RIGHT VENTRICLE The right ventricle is normal size. There is normal right ventricular wall thickness. The right ventricular systolic function is normal. ATRIA The left atrium size is normal. The right atrium size is normal. The interatrial septum is intact with no evidence for an atrial septal defect. AORTIC VALVE The aortic valve is normal in structure. No aortic regurgitation is present. There is no aortic valvular stenosis. There is no aortic valvular vegetation. MITRAL VALVE The mitral valve is normal in structure. There is no evidence of mitral valve prolapse. There is no mitral valve stenosis. There is no mitral valve regurgitation noted. TRICUSPID VALVE The tricuspid valve is normal in structure. There is no tricuspid valve regurgitation noted. There is no tricuspid valve prolapse or vegetation. There is no tricuspid valve stenosis. PULMONIC VALVE The pulmonary valve is normal in structure. There is no pulmonic valvular regurgitation. There is no pulmonic valvular stenosis. GREAT VESSELS The aortic root is normal in size. PERICARDIAL EFFUSION There is no pericardial effusion. <Conclusion> Left ventricle systolic function is normal. The Ejection Fraction is 55-60%. No aortic regurgitation is present. There is no mitral valve regurgitation noted. There is no tricuspid valve regurgitation noted. There is no pulmonic valvular regurgitation.
[2016-08-05 06:36] LABS: BASO % 0.7 % (0.0-2.0); EOS # 0.2 K/uL (0.0-0.7); EOS % 3.9 % (0.0-4.0); HEMATOCRIT 36.6 % (35.0-51.0); LYMPH # 1.2 K/uL (1.0-4.3); LYMPH % 20.5 % (20.0-40.0); MEAN CELL VOLUME 72.7 fL (80.0-94.0); MEAN CORPUSCULAR HGB CONC 31.6 g/dL (33.0-37.0); MEAN PLATELET VOLUME 9.2 fL (7.2-11.7); MONO # 0.6 K/uL (0.0-0.8); MONO % 11.1 % (0.0-10.0); NRBC % 0.2 % (0.0-2.0); RED CELL DISTRIBUTION WIDTH 15.9 % (11.5-14.5); WHITE BLOOD COUNT 5.8 K/uL (4.8-10.8)
[2016-08-05 06:54] LABS: CHLORIDE 94 mmol/L (98-107); POTASSIUM 3.3 mmol/L (3.6-5.2); SODIUM 132 mmol/L (132-148)
[2016-08-05 06:56] LABS: BILIRUBIN,TOTAL 1.2 mg/dL (0.2-1.3); CARBON DIOXIDE 21 mmol/L (22-30); GFR AFRICAN-AMERICAN > 60
[2016-08-05 06:57] LABS: ALB/GLOB RATIO 1.1 (1.0-2.1); ALKALINE PHOSPHATASE 75 U/L (38-126); ALT/SGPT 44 U/L (21-72); AST/SGOT 108 U/L (17-59); BLOOD UREA NITROGEN 33 mg/dL (9-20); CALCIUM 9.7 mg/dl (8.6-10.4); GLUCOSE,RANDOM 107 mg/dL (75-110); MAGNESIUM 1.8 mg/dL (1.6-2.3); PHOSPHOROUS 5.8 mg/dL (2.5-4.5); TOTAL PROTEIN 9.8 g/dL (6.3-8.3)
--- NOTE | 2016-08-05 09:14 | CP.PCM.PN ---
Subjective - Date & Time of Evaluation Date of Evaluation: 08/05/16 Time of Evaluation: 11:40 - Subjective Subjective: clinically same Objective - Vital Signs/Intake and Output Vital Signs (last 24 hours): Temp Pulse Resp BP Pulse Ox 97.9 F 100 H 20 147/93 H 96 08/04/16 23:22 08/05/16 05:48 08/04/16 23:22 08/04/16 23:22 08/04/16 23:22 Intake and Output: 08/05/16 08/05/16 06:59 18:59 Intake Total 500 Balance 500 - Medications Medications: Current Medications Amlodipine Besylate (Norvasc) 10 mg PO DAILY [facility] Last Admin: 08/04/16 09:47 Dose: 10 mg Aspirin (Aspirin) 325 mg PO DAILY [facility] Last Admin: 08/04/16 09:47 Dose: 325 mg Benztropine Mesylate (Cogentin) 1 mg IM Q6H PRN PRN Reason: acute dystonia Chlordiazepoxide (Librium) 25 mg PO Q6 [facility] Last Admin: 08/05/16 06:54 Dose: Not Given Enoxaparin Sodium (Lovenox) 40 mg SC DAILY [facility] Last Admin: 08/04/16 09:47 Dose: 40 mg Gabapentin (Neurontin) 300 mg PO TID [facility] Haloperidol Lactate (Haldol) 5 mg IM Q4H PRN PRN Reason: severe agitation Folic Acid 1 mg/ Thiamine HCl 100 mg/ Multivitamins/Vitamin C 10 ml/ Dextrose 1 ,011.2 mls @ 100 mls/hr IV .Q10H7M PRN Last Admin: 08/03/16 21:55 Dose: 100 mls/hr Lorazepam (Ativan) 2 mg IVP Q3H PRN PRN Reason: Agitation Last Admin: 08/04/16 21:22 Dose: 2 mg Metoprolol Tartrate (Lopressor) 50 mg PO BID [facility] Last Admin: 08/04/16 19:04 Dose: Not Given Pantoprazole Sodium (Protonix Ec Tab) 40 mg PO DAILY [facility] Last Admin: 08/04/16 09:47 Dose: 40 mg - Labs Labs: 08/05/16 05:58 08/05/16 05:58 PT 12.4 SECONDS (9.7-12.2) H 08/02/16 13:06 INR 1.1 08/02/16 13:06 APTT 38 SECONDS (21-34) H 08/02/16 13:06 - Constitutional Appears: Well - Head Exam Head Exam: ATRAUMATIC, NORMAL INSPECTION, NORMOCEPHALIC - Eye Exam Eye Exam: EOMI, Normal appearance, PERRL Pupil Exam: NORMAL ACCOMODATION, PERRL - ENT Exam ENT Exam: Mucous Membranes Moist, Normal Exam - Neck Exam Neck Exam: Full ROM, Normal Inspection. absent: Lymphadenopathy - Respiratory Exam Respiratory Exam: Decreased Breath Sounds - Cardiovascular Exam Cardiovascular Exam: REGULAR RHYTHM, +S1, +S2 - GI/Abdominal Exam GI & Abdominal Exam: Soft, Diminished Bowel Sounds - Rectal Exam Rectal Exam: Deferred Assessment and Plan (1) Acute bronchitis Status: Acute (2) Acute pancreatitis Status: Acute (3) Alcohol abuse Status: Acute (4) Alcohol abuse with intoxication Status: Acute (5) Alcohol dependence Status: Acute (6) Alcohol intoxication Status: Acute (7) Alcohol withdrawal syndrome Status: Acute (8) Alcoholic gastritis Status: Acute (9) Bed bug bite Status: Acute (10) Blood glucose abnormal Status: Acute (11) Chest pain Status: Acute (12) Chest pain Status: Acute (13) Chest pain Status: Acute (14) Chronic knee pain Status: Acute (15) Closed right tibial fracture Status: Acute (16) Dermatitis Status: Acute (17) Diarrhea Status: Acute (18) Elevated lipase Status: Acute (19) Encounter for medical assessment Status: Acute (20) Encounter for removal of sutures Status: Acute (21) Epigastric abdominal pain Status: Acute (22) Falls Status: Acute (23) GI bleed Status: Acute (24) Head injury Status: Acute (25) Head injury, acute Status: Acute (26) Homeless single person Status: Acute (27) Hypokalemia Status: Acute (28) Hypomagnesemia Status: Acute (29) Hyponatremia Status: Acute (30) LFT elevation Status: Acute (31) Laceration Status: Acute (32) Leg pain Status: Acute (33) Lower extremity edema Status: Acute (34) Microcytic anemia Status: Acute (35) Non-cardiac chest pain Status: Acute (36) Opioid abuse Status: Acute (37) Pancreatitis Status: Acute (38) Patient left before treatment completed Status: Acute (39) Pneumonia Status: Acute (40) Prophylactic measure Status: Acute (41) Removal of staple Status: Acute (42) Scabies Status: Acute (43) Syncope Status: Acute (44) Toe fracture, left Status: Acute (45) HTN (hypertension) Status: Chronic (46) Impaired glucose tolerance Status: Chronic - Assessment and Plan (Free Text) Plan: Follow-up cardiology Follow-up psychiatry ECHO normal with EF 55-60% Continue aspirin Norvasc Lopressor Stress test pending
--- NOTE | 2016-08-05 09:28 | CP.PCM.PN ---
<Kasey Machado - Last Filed: 08/05/16 09:53> Subjective - Date & Time of Evaluation Date of Evaluation: 08/05/16 Time of Evaluation: 09:00 - Subjective Subjective: Cardiology Progress Note- Dr. Kilgore Service: Patient seen and examined at bedside this AM. Patient in is 2 point restraint this AM as per psych. Patient is cooperative this morning and being fed by staff. As per staff, patient with acute agitation overnight wanting to flip the bed over. Patient spitting at staff and refusing medications overnight. He has not been getting PO Librium. Objective - Vital Signs/Intake and Output Vital Signs (last 24 hours): Temp Pulse Resp BP Pulse Ox 97.9 F 100 H 20 147/93 H 96 08/04/16 23:22 08/05/16 05:48 08/04/16 23:22 08/04/16 23:22 08/04/16 23:22 Intake and Output: 08/05/16 08/05/16 06:59 18:59 Intake Total 500 Balance 500 - Medications Medications: Current Medications Amlodipine Besylate (Norvasc) 10 mg PO DAILY [facility] Last Admin: 08/04/16 09:47 Dose: 10 mg Aspirin (Aspirin) 325 mg PO DAILY [facility] Last Admin: 08/04/16 09:47 Dose: 325 mg Benztropine Mesylate (Cogentin) 1 mg IM Q6H PRN PRN Reason: acute dystonia Chlordiazepoxide (Librium) 25 mg PO Q6 [facility] Last Admin: 08/05/16 06:54 Dose: Not Given Enoxaparin Sodium (Lovenox) 40 mg SC DAILY [facility] Last Admin: 08/04/16 09:47 Dose: 40 mg Gabapentin (Neurontin) 300 mg PO TID [facility] Haloperidol Lactate (Haldol) 5 mg IM Q4H PRN PRN Reason: severe agitation Folic Acid 1 mg/ Thiamine HCl 100 mg/ Multivitamins/Vitamin C 10 ml/ Dextrose 1 ,011.2 mls @ 100 mls/hr IV .Q10H7M PRN Last Admin: 08/03/16 21:55 Dose: 100 mls/hr Lorazepam (Ativan) 2 mg IVP Q3H PRN PRN Reason: Agitation Last Admin: 08/04/16 21:22 Dose: 2 mg Metoprolol Tartrate (Lopressor) 50 mg PO BID [facility] Last Admin: 08/04/16 19:04 Dose: Not Given Pantoprazole Sodium (Protonix Ec Tab) 40 mg PO DAILY [facility] Last Admin: 08/04/16 09:47 Dose: 40 mg - Labs Labs: 08/05/16 05:58 08/05/16 05:58 PT 12.4 SECONDS (9.7-12.2) H 08/02/16 13:06 INR 1.1 08/02/16 13:06 APTT 38 SECONDS (21-34) H 08/02/16 13:06 - Constitutional Appears: No Acute Distress, Unkempt, Confused - Head Exam Head Exam: NORMAL INSPECTION, NORMOCEPHALIC - Eye Exam Eye Exam: EOMI, Normal appearance - ENT Exam ENT Exam: Mucous Membranes Moist, Normal Exam - Respiratory Exam Respiratory Exam: Clear to Ausculation Bilateral, NORMAL BREATHING PATTERN - Cardiovascular Exam Cardiovascular Exam: REGULAR RHYTHM, +S1, +S2 - GI/Abdominal Exam GI & Abdominal Exam: Soft. absent: Distended, Tenderness - Extremities Exam Additional comments: +venous dermatitis in bilateral - Neurological Exam Neurological Exam: Alert, Oriented x3 - Psychiatric Exam Psychiatric exam: Normal Affect, Normal Mood - Skin Skin Exam: Normal Color, Warm Assessment and Plan - Assessment and Plan (Free Text) Assessment: (1) Chest pain Assessment and Plan: Troponins #1: 0.170, #2: 0.0220, #3: 0.0150. CK-MB: 5.48, 4.03, 3.74 EKG: (08/03/16)Normal sinus rhythm, Q waves present in V1 and V2. Prolonged QTc. Possible septal infarct of unknown age. (07/10/16) Normal sinus rhythm, first degree AV block ECHO: (08/20/14): EF: 77%, mild LVH UDS: negative ECHO: (08/03/16): normal with EF 55-60% ASA 325 mg PO daily Norvasc 10 mg PO daily Lopressor 50 mg PO BID As per Dr. Kilgore, patient for stress test once medically stable from withdrawal and able to follow commands. stress test ordered for new Q waves found on lateral leads on EKG done on admission (compared to EKG done 07/10/16). Status: Acute (2) Lower extremity edema Assessment and Plan: BNP 60.1 on admission. CXR on admission showed cardiomegaly with mild venous congestion. ECHO: (08/20/14): EF: 77%, mild LVH. ECHO: (08/03/16): normal with EF 55-60% LE Dopplers negative for DVT b/l. Wound care ordered for stasis dermatitis of lower extremities. Status: Acute (3) HTN (hypertension) Assessment and Plan: Lopressor 50 mg PO BID Norvasc 10 mg PO daily Patient currently confused and refusing some PO meds. If BP elevated, will consider IV options. Status: Chronic (4) Alcohol withdrawal syndrome Assessment and Plan: Patient on 2 point restraint. Psych on board. Management as per primary team. Seizure precautions. Status: Acute - Assessment and Plan (Free Text) Assessment: Discussed with Dr. Kilgore. Moises Machado DO- PGY 2 <Dariela Kilgore - Last Filed: 08/11/16 11:48> Objective - Vital Signs/Intake and Output Vital Signs (last 24 hours): Temp Pulse Resp BP Pulse Ox 97.7 F 65 20 137/63 97 08/10/16 15:15 08/10/16 15:15 08/10/16 15:15 08/10/16 15:15 08/10/16 15:15 - Labs Labs: 08/10/16 06:12 08/10/16 06:12 PT 12.4 SECONDS (9.7-12.2) H 08/02/16 13:06 INR 1.1 08/02/16 13:06 APTT 38 SECONDS (21-34) H 08/02/16 13:06 Attending/Attestation - Attestation I have personally seen and examined this patient.: Yes I have fully participated in the care of the patient.: Yes I have reviewed all pertinent clinical information, including history, physical exam and plan: Yes Notes (Text): 08/11/16 11:47 being fed by staff in restraints no cp
[2016-08-05] MEDS: Pantoprazole 40 mg EC Tab PO SCH (11:47)
[2016-08-05] MEDS: Enoxaparin 40 mg Syringe SC SCH (11:48)
--- NOTE | 2016-08-05 12:30 | PCM.PYCHPN ---
Psychiatric Progress Note - Psychiatric Progress Note Patient seen today, length of contact: 16 min Patient Chief Complaint: "OK" Problems Identified/Issues Discussed: The patient is seen, chart reviewed and case discussed. He is calm her down today but we were told that he was very agitated and restless last night. DTs still there because he is still confused and withdrawing. As per his doctor he is not able to take pills by mouth properly so Librium stopped and he will get Ativan IV taper, which is adjusted. Support given He knew he was in [facility] and he knew the year but he couldn't know the other details. Still on one-to-one Medication Change: Yes (Start Ativan IV taper) Medical Record Reviewed: Yes Mental Status Examination - Cognitive Function Orientation: Place Memory: Impaired Attention: Poor Concentration: Poor Association: Loose Fund of Knowledge: Poor - Mood Mood: Anxious - Affect Affect: Blunted - Speech Speech: Slurred - Formal Thought Process Formal Thought Process: Hallucinations, Loosening of associations - Suicidal Ideation Suicidal Ideation: No - Homicidal Ideation Homicidal Ideation: No Goal/Treatment Plan - Goal/Treatment Plan Need for Continued Stay: Severe functional impairment Progress Toward Problem(s) and Goals/Treatment Plan: DT: - IV ativan or diazepam detox - Hydration - Vitamins - Anti-epileptics as needed - gabapentin - prn Haldol (pt is agitated) -1:1 Alcoholism: - Refer to rehab, i.e. [facility], when medically cleared and completes detox - AA - [place] for abstinence
[2016-08-05] MEDS: Folic Acid 1 MG, Thiamine 100 MG, Multivitamin (MVI) 10 ML in Dextrose 5% In Water 1,00... IV SCH (14:28)
[2016-08-05] MEDS ORDERED: Potassium Chloride 20 mEq ER Tab PO STA (16:45)
--- NOTE | 2016-08-06 09:47 | CP.PCM.PN ---
<Micah Thomas - Last Filed: 08/06/16 14:28> Subjective - Date & Time of Evaluation Date of Evaluation: 08/06/16 Time of Evaluation: 09:00 - Subjective Subjective: Medicine Note- Dr. Tobias's service Patient was seen and examined at bedside. Patient appears calm, in no acute distress. Patient is oriented to self, time and place. Patient reports he still some slight chest pain, but appears musculoskeletal, as upon palpation, it worsened the pain. Patient has no acute complaints at this time. No events overnight, per nursing and house staff. Objective - Vital Signs/Intake and Output Vital Signs (last 24 hours): Temp Pulse Resp BP Pulse Ox 98.0 F 90 16 109/69 97 08/06/16 08:13 08/06/16 08:28 08/06/16 08:13 08/06/16 08:13 08/06/16 08:13 - Medications Medications: Current Medications Amlodipine Besylate (Norvasc) 10 mg PO DAILY [facility] Last Admin: 08/06/16 09:12 Dose: 10 mg Aspirin (Aspirin) 325 mg PO DAILY [facility] Last Admin: 08/06/16 09:12 Dose: 325 mg Benztropine Mesylate (Cogentin) 1 mg IM Q6H PRN PRN Reason: acute dystonia Enoxaparin Sodium (Lovenox) 40 mg SC DAILY [facility] Last Admin: 08/05/16 11:48 Dose: 40 mg Gabapentin (Neurontin) 300 mg PO TID [facility] Last Admin: 08/05/16 17:30 Dose: 300 mg Haloperidol Lactate (Haldol) 5 mg IM Q4H PRN PRN Reason: severe agitation Folic Acid 1 mg/ Thiamine HCl 100 mg/ Multivitamins/Vitamin C 10 ml/ Dextrose 1 ,011.2 mls @ 100 mls/hr IV DAILY [facility] Last Admin: 08/05/16 14:28 Dose: 100 mls/hr Lorazepam (Ativan) 1 mg IVP Q4H PRN PRN Reason: Agitation Metoprolol Tartrate (Lopressor) 50 mg PO BID [facility] Last Admin: 08/06/16 09:12 Dose: 50 mg Pantoprazole Sodium (Protonix Ec Tab) 40 mg PO DAILY [facility] Last Admin: 08/05/16 11:47 Dose: 40 mg - Labs Labs: 08/05/16 05:58 08/05/16 05:58 PT 12.4 SECONDS (9.7-12.2) H 08/02/16 13:06 INR 1.1 08/02/16 13:06 APTT 38 SECONDS (21-34) H 08/02/16 13:06 - Constitutional Appears: Non-toxic, No Acute Distress - Head Exam Head Exam: ATRAUMATIC, NORMAL INSPECTION, NORMOCEPHALIC - Eye Exam Pupil Exam: NORMAL ACCOMODATION, PERRL - ENT Exam ENT Exam: Mucous Membranes Moist - Respiratory Exam Respiratory Exam: Clear to Ausculation Bilateral, NORMAL BREATHING PATTERN. absent: Prolonged Expiratory Phase, Rales, Rhonchi, Wheezes - Cardiovascular Exam Cardiovascular Exam: REGULAR RHYTHM, +S1, +S2 - GI/Abdominal Exam GI & Abdominal Exam: Soft, Normal Bowel Sounds. absent: Tenderness, Diminished Bowel Sounds, Hernia, Hypoactive Bowel Sounds - Extremities Exam Extremities Exam: Normal Capillary Refill, Normal Inspection - Neurological Exam Neurological Exam: Alert, Awake, Oriented x3 - Psychiatric Exam Psychiatric exam: Normal Affect, Normal Mood - Skin Skin Exam: Dry, Intact, Normal Color, Warm Assessment and Plan - Assessment and Plan (Free Text) Assessment: (1) Chest pain Assessment and Plan: Troponins #1: 0.170, #2: 0.0220, #3: 0.0150. CK-MB: 5.48, 4.03, 3.74 EKG: (08/03/16)Normal sinus rhythm, Q waves present in V1 and V2. Prolonged QTc. Possible septal infarct of unknown age. (07/10/16) Normal sinus rhythm, first degree AV block ECHO: (08/20/14): EF: 77%, mild LVH UDS: negative ECHO: (08/03/16): normal with EF 55-60% ASA 325 mg PO daily Norvasc 10 mg PO daily Lopressor 50 mg PO BID As per Dr. Kilgore, no longer will perform stress test on this visit. May need one outpatient. Status: Acute (2) Lower extremity edema Assessment and Plan: BNP 60.1 on admission. CXR on admission showed cardiomegaly with mild venous congestion. ECHO: (08/20/14): EF: 77%, mild LVH. ECHO: (08/03/16): normal with EF 55-60% LE Dopplers negative for DVT b/l. Wound care ordered for stasis dermatitis of lower extremities. Status: Acute (3) HTN (hypertension) Assessment and Plan: Lopressor 50 mg PO BID Norvasc 10 mg PO daily Patient currently confused and refusing some PO meds. If BP elevated, will consider IV options. Status: Chronic (4) Alcohol withdrawal syndrome Assessment and Plan: Consult Psych- Dr. García Ativan 1mg IVP Q4h PRN Seizure precautions. Continue Banana bag Status: Acute (5) Agitation Assessment and Plan: Patient no longer on 2 point restrains as he is calmer and more oriented now Continue Haldol 5mg IM Q4h PRN Continue Cogentin 1mg IM Q6h PRN a (6) Prophylactic Measure Assessment and Plan: Protonix 40mg PO Daily Lovenox 40mg SC Daily <Anh Tobias S - Last Filed: 08/10/16 13:54> Objective - Vital Signs/Intake and Output Vital Signs (last 24 hours): Temp Pulse Resp BP Pulse Ox 98.4 F 72 20 101/65 97 08/10/16 08:30 08/10/16 08:30 08/10/16 08:30 08/10/16 08:30 08/10/16 08:30 - Medications Medications: Current Medications Amlodipine Besylate (Norvasc) 10 mg PO DAILY [facility] Last Admin: 08/10/16 10:42 Dose: 10 mg Aspirin (Aspirin) 325 mg PO DAILY [facility] Last Admin: 08/10/16 10:41 Dose: 325 mg Benztropine Mesylate (Cogentin) 1 mg IM Q6H PRN PRN Reason: acute dystonia Gabapentin (Neurontin) 300 mg PO TID [facility] Last Admin: 08/10/16 13:44 Dose: 300 mg Haloperidol Lactate (Haldol) 5 mg IM Q4H PRN PRN Reason: severe agitation Lorazepam (Ativan) 1 mg IVP Q4H PRN PRN Reason: Agitation Last Admin: 08/07/16 23:00 Dose: 1 mg Metoprolol Tartrate (Lopressor) 50 mg PO BID [facility] Last Admin: 08/10/16 10:41 Dose: 50 mg Naltrexone HCl (Revia) 50 mg PO DAILY [facility] Last Admin: 08/09/16 10:02 Dose: 50 mg Pantoprazole Sodium (Protonix Ec Tab) 40 mg PO DAILY [facility] Last Admin: 08/10/16 10:41 Dose: 40 mg Sertraline HCl (Zoloft) 50 mg PO DAILY [facility] Last Admin: 08/10/16 10:42 Dose: 50 mg - Labs Labs: 08/10/16 06:12 08/10/16 06:12 PT 12.4 SECONDS (9.7-12.2) H 08/02/16 13:06 INR 1.1 08/02/16 13:06 APTT 38 SECONDS (21-34) H 08/02/16 13:06 Attending/Attestation - Attestation I have personally seen and examined this patient.: Yes I have fully participated in the care of the patient.: Yes I have reviewed all pertinent clinical information, including history, physical exam and plan: Yes Notes (Text): troponins negative admitte [facility] yocasta nicolasa as ordered adn discusse [facility] staff and resident
[2016-08-06] MEDS: Folic Acid 1 MG, Thiamine 100 MG, Multivitamin (MVI) 10 ML in Dextrose 5% In Water 1,00... IV SCH (10:19)
--- NOTE | 2016-08-06 10:21 | CP.PCM.PN ---
Subjective - Date & Time of Evaluation Date of Evaluation: 08/06/16 Time of Evaluation: 12:00 - Subjective Subjective: clinically same Objective - Vital Signs/Intake and Output Vital Signs (last 24 hours): Temp Pulse Resp BP Pulse Ox 98.0 F 90 16 109/69 97 08/06/16 08:13 08/06/16 08:28 08/06/16 08:13 08/06/16 08:13 08/06/16 08:13 - Medications Medications: Current Medications Amlodipine Besylate (Norvasc) 10 mg PO DAILY [facility] Last Admin: 08/06/16 09:12 Dose: 10 mg Aspirin (Aspirin) 325 mg PO DAILY [facility] Last Admin: 08/06/16 09:12 Dose: 325 mg Benztropine Mesylate (Cogentin) 1 mg IM Q6H PRN PRN Reason: acute dystonia Enoxaparin Sodium (Lovenox) 40 mg SC DAILY [facility] Last Admin: 08/05/16 11:48 Dose: 40 mg Gabapentin (Neurontin) 300 mg PO TID [facility] Last Admin: 08/05/16 17:30 Dose: 300 mg Haloperidol Lactate (Haldol) 5 mg IM Q4H PRN PRN Reason: severe agitation Folic Acid 1 mg/ Thiamine HCl 100 mg/ Multivitamins/Vitamin C 10 ml/ Dextrose 1 ,011.2 mls @ 100 mls/hr IV DAILY [facility] Last Admin: 08/05/16 14:28 Dose: 100 mls/hr Lorazepam (Ativan) 1 mg IVP Q4H PRN PRN Reason: Agitation Metoprolol Tartrate (Lopressor) 50 mg PO BID [facility] Last Admin: 08/06/16 09:12 Dose: 50 mg Pantoprazole Sodium (Protonix Ec Tab) 40 mg PO DAILY [facility] Last Admin: 08/05/16 11:47 Dose: 40 mg - Labs Labs: 08/05/16 05:58 08/05/16 05:58 PT 12.4 SECONDS (9.7-12.2) H 08/02/16 13:06 INR 1.1 08/02/16 13:06 APTT 38 SECONDS (21-34) H 08/02/16 13:06 - Constitutional Appears: Well - Head Exam Head Exam: ATRAUMATIC, NORMAL INSPECTION, NORMOCEPHALIC - Eye Exam Eye Exam: EOMI, Normal appearance, PERRL Pupil Exam: NORMAL ACCOMODATION, PERRL - ENT Exam ENT Exam: Mucous Membranes Moist, Normal Exam - Neck Exam Neck Exam: Full ROM, Normal Inspection. absent: Lymphadenopathy - Respiratory Exam Respiratory Exam: Decreased Breath Sounds - Cardiovascular Exam Cardiovascular Exam: REGULAR RHYTHM, +S1, +S2 - GI/Abdominal Exam GI & Abdominal Exam: Soft, Diminished Bowel Sounds - Rectal Exam Rectal Exam: Deferred Assessment and Plan (1) Acute bronchitis Status: Acute (2) Acute pancreatitis Status: Acute (3) Alcohol abuse Status: Acute (4) Alcohol abuse with intoxication Status: Acute (5) Alcohol dependence Status: Acute (6) Alcohol intoxication Status: Acute (7) Alcohol withdrawal syndrome Status: Acute (8) Alcoholic gastritis Status: Acute (9) Bed bug bite Status: Acute (10) Blood glucose abnormal Status: Acute (11) Chest pain Status: Acute (12) Chest pain Status: Acute (13) Chest pain Status: Acute (14) Chronic knee pain Status: Acute (15) Closed right tibial fracture Status: Acute (16) Dermatitis Status: Acute (17) Diarrhea Status: Acute (18) Elevated lipase Status: Acute (19) Encounter for medical assessment Status: Acute (20) Encounter for removal of sutures Status: Acute (21) Epigastric abdominal pain Status: Acute (22) Falls Status: Acute (23) GI bleed Status: Acute (24) Head injury Status: Acute (25) Head injury, acute Status: Acute (26) Homeless single person Status: Acute (27) Hypokalemia Status: Acute (28) Hypomagnesemia Status: Acute (29) Hyponatremia Status: Acute (30) LFT elevation Status: Acute (31) Laceration Status: Acute (32) Leg pain Status: Acute (33) Lower extremity edema Status: Acute (34) Microcytic anemia Status: Acute (35) Non-cardiac chest pain Status: Acute (36) Opioid abuse Status: Acute (37) Pancreatitis Status: Acute (38) Patient left before treatment completed Status: Acute (39) Pneumonia Status: Acute (40) Prophylactic measure Status: Acute (41) Removal of staple Status: Acute (42) Scabies Status: Acute (43) Syncope Status: Acute (44) Toe fracture, left Status: Acute (45) HTN (hypertension) Status: Chronic (46) Impaired glucose tolerance Status: Chronic - Assessment and Plan (Free Text) Plan: Follow-up with cardiology Follow-up with psychiatry Troponin negative Continue aspirin Norvasc Lopressor Cogentin Neurontin Folic acid Wound care
[2016-08-06] MEDS: Pantoprazole 40 mg EC Tab PO SCH (10:22)
[2016-08-06] MEDS: Enoxaparin 40 mg Syringe SC SCH (10:22)
--- NOTE | 2016-08-06 10:22 | CP.PCM.PN ---
<Kasey Machado - Last Filed: 08/06/16 10:17> Subjective - Date & Time of Evaluation Date of Evaluation: 08/06/16 Time of Evaluation: 09:00 - Subjective Subjective: Cardiology Progress Note- Dr. Kilgore Patient seen and examined at bedside this AM. Patient is more awake and alert this morning. He is asking for food. He is alert and oriented X3. Continues to admit to some chest pains this AM, but improved since admission. Also admits to some SOB Patient is lying comfortably in no stress this AM. All other 12 point ROS for acute symptoms done and negative. Objective - Vital Signs/Intake and Output Vital Signs (last 24 hours): Temp Pulse Resp BP Pulse Ox 98.0 F 90 16 109/69 97 08/06/16 08:13 08/06/16 08:28 08/06/16 08:13 08/06/16 08:13 08/06/16 08:13 - Medications Medications: Current Medications Amlodipine Besylate (Norvasc) 10 mg PO DAILY [facility] Last Admin: 08/06/16 09:12 Dose: 10 mg Aspirin (Aspirin) 325 mg PO DAILY [facility] Last Admin: 08/06/16 09:12 Dose: 325 mg Benztropine Mesylate (Cogentin) 1 mg IM Q6H PRN PRN Reason: acute dystonia Enoxaparin Sodium (Lovenox) 40 mg SC DAILY [facility] Last Admin: 08/05/16 11:48 Dose: 40 mg Gabapentin (Neurontin) 300 mg PO TID [facility] Last Admin: 08/05/16 17:30 Dose: 300 mg Haloperidol Lactate (Haldol) 5 mg IM Q4H PRN PRN Reason: severe agitation Folic Acid 1 mg/ Thiamine HCl 100 mg/ Multivitamins/Vitamin C 10 ml/ Dextrose 1 ,011.2 mls @ 100 mls/hr IV DAILY [facility] Last Admin: 08/05/16 14:28 Dose: 100 mls/hr Lorazepam (Ativan) 1 mg IVP Q4H PRN PRN Reason: Agitation Metoprolol Tartrate (Lopressor) 50 mg PO BID [facility] Last Admin: 08/06/16 09:12 Dose: 50 mg Pantoprazole Sodium (Protonix Ec Tab) 40 mg PO DAILY [facility] Last Admin: 08/05/16 11:47 Dose: 40 mg - Labs Labs: 08/05/16 05:58 08/05/16 05:58 PT 12.4 SECONDS (9.7-12.2) H 08/02/16 13:06 INR 1.1 08/02/16 13:06 APTT 38 SECONDS (21-34) H 08/02/16 13:06 - Constitutional Appears: No Acute Distress, Unkempt - Head Exam Head Exam: NORMAL INSPECTION, NORMOCEPHALIC - Eye Exam Eye Exam: EOMI, Normal appearance - ENT Exam ENT Exam: Mucous Membranes Moist - Respiratory Exam Respiratory Exam: Clear to Ausculation Bilateral, NORMAL BREATHING PATTERN - Cardiovascular Exam Cardiovascular Exam: REGULAR RHYTHM, +S1, +S2 - GI/Abdominal Exam GI & Abdominal Exam: Soft. absent: Distended, Tenderness - Extremities Exam Additional comments: +stasis dermatitis in bilateral lower extremities - Neurological Exam Neurological Exam: Alert, Oriented x3 - Psychiatric Exam Psychiatric exam: Normal Affect, Normal Mood - Skin Skin Exam: Normal Color, Warm Assessment and Plan - Assessment and Plan (Free Text) Assessment: (1) Chest pain Assessment and Plan: Troponins #1: 0.170, #2: 0.0220, #3: 0.0150. CK-MB: 5.48, 4.03, 3.74 EKG: (08/03/16)Normal sinus rhythm, Q waves present in V1 and V2. Prolonged QTc. Possible septal infarct of unknown age. (07/10/16) Normal sinus rhythm, first degree AV block ECHO: (08/20/14): EF: 77%, mild LVH UDS: negative ECHO: (08/03/16): normal with EF 55-60% ASA 325 mg PO daily Norvasc 10 mg PO daily Lopressor 50 mg PO BID As per Dr. Kilgore, patient for stress test as outpatient. Stress test ordered for new Q waves found on lateral leads on EKG done on admission (compared to EKG done 07/10/16). Status: Acute (2) Lower extremity edema Assessment and Plan: BNP 60.1 on admission. CXR on admission showed cardiomegaly with mild venous congestion. ECHO: (08/20/14): EF: 77%, mild LVH. ECHO: (08/03/16): normal with EF 55-60% LE Dopplers negative for DVT b/l. Wound care ordered for stasis dermatitis of lower extremities. Status: Acute (3) HTN (hypertension) Assessment and Plan: Lopressor 50 mg PO BID Norvasc 10 mg PO daily If BP elevated, will consider IV options. Status: Chronic (4) Alcohol withdrawal syndrome Assessment and Plan: Patient on 2 point restraint. Psych on board. Management as per primary team. Seizure precautions. Status: Acute - Assessment and Plan (Free Text) Assessment: Discussed with Dr. Kilgore. Moises Machado DO- PGY 2 <Dariela Kilgore - Last Filed: 08/11/16 11:44> Objective - Vital Signs/Intake and Output Vital Signs (last 24 hours): Temp Pulse Resp BP Pulse Ox 97.7 F 65 20 137/63 97 08/10/16 15:15 08/10/16 15:15 08/10/16 15:15 08/10/16 15:15 08/10/16 15:15 - Labs Labs: 08/10/16 06:12 08/10/16 06:12 PT 12.4 SECONDS (9.7-12.2) H 08/02/16 13:06 INR 1.1 08/02/16 13:06 APTT 38 SECONDS (21-34) H 08/02/16 13:06 Attending/Attestation - Attestation I have personally seen and examined this patient.: Yes I have fully participated in the care of the patient.: Yes I have reviewed all pertinent clinical information, including history, physical exam and plan: Yes Notes (Text): 08/11/16 11:44 pt withdrawing from etoh stable no issues
--- NOTE | 2016-08-06 22:29 | PCM.PYCHPN ---
Psychiatric Progress Note - Psychiatric Progress Note Patient seen today, length of contact: 17 min Patient Chief Complaint: "I'm fine" Problems Identified/Issues Discussed: The patient is seen, chart reviewed and case discussed. He is much calmer and more lucid. Oriented x3 with minor mistakes, memory poor, attention also poor No AVH and no delus. No tremors, sweating He is almost back to his baseline, which is where he usually signs out AMA. He is warned against it and advised to consider rehab. He said he would "really try to stop this time." AK used, support given. Medication Change: Yes (detox ending) Medical Record Reviewed: Yes Mental Status Examination - Cognitive Function Orientation: Person, Place, Situation, Time Memory: Impaired Attention: Poor Concentration: Poor Association: WNL Fund of Knowledge: Poor - Mood Mood: Anxious - Affect Affect: Constricted - Speech Speech: Slurred - Formal Thought Process Formal Thought Process: Loosening of associations - Suicidal Ideation Suicidal Ideation: No - Homicidal Ideation Homicidal Ideation: No Goal/Treatment Plan - Goal/Treatment Plan Need for Continued Stay: Severe functional impairment Progress Toward Problem(s) and Goals/Treatment Plan: DT: - detox ended - Hydration - Vitamins - Anti-epileptics as needed - gabapentin - prn Haldol -1:1 ended as he is stable now Alcoholism: - Refer to rehab, i.e. [facility], when medically cleared and completes detox - AA - [place] for abstinence
--- NOTE | 2016-08-07 07:34 | CP.PCM.PN ---
Subjective - Date & Time of Evaluation Date of Evaluation: 08/07/16 Time of Evaluation: 07:25 - Subjective Subjective: much better not combative Objective - Vital Signs/Intake and Output Vital Signs (last 24 hours): Temp Pulse Resp BP Pulse Ox 98.5 F 61 20 106/63 97 08/07/16 00:00 08/07/16 00:00 08/07/16 00:00 08/07/16 00:00 08/07/16 00:00 Intake and Output: 08/07/16 08/07/16 06:59 18:59 Output Total 150 Balance -150 - Medications Medications: Current Medications Amlodipine Besylate (Norvasc) 10 mg PO DAILY [facility] Last Admin: 08/06/16 09:12 Dose: 10 mg Aspirin (Aspirin) 325 mg PO DAILY [facility] Last Admin: 08/06/16 09:12 Dose: 325 mg Benztropine Mesylate (Cogentin) 1 mg IM Q6H PRN PRN Reason: acute dystonia Enoxaparin Sodium (Lovenox) 40 mg SC DAILY [facility] Last Admin: 08/06/16 10:22 Dose: 40 mg Gabapentin (Neurontin) 300 mg PO TID [facility] Last Admin: 08/06/16 17:35 Dose: 300 mg Haloperidol Lactate (Haldol) 5 mg IM Q4H PRN PRN Reason: severe agitation Folic Acid 1 mg/ Thiamine HCl 100 mg/ Multivitamins/Vitamin C 10 ml/ Dextrose 1 ,011.2 mls @ 100 mls/hr IV DAILY [facility] Last Admin: 08/06/16 10:19 Dose: 100 mls/hr Lorazepam (Ativan) 1 mg IVP Q4H PRN PRN Reason: Agitation Metoprolol Tartrate (Lopressor) 50 mg PO BID [facility] Last Admin: 08/06/16 17:35 Dose: 50 mg Pantoprazole Sodium (Protonix Ec Tab) 40 mg PO DAILY [facility] Last Admin: 08/06/16 10:22 Dose: 40 mg - Labs Labs: 08/05/16 05:58 08/05/16 05:58 PT 12.4 SECONDS (9.7-12.2) H 08/02/16 13:06 INR 1.1 08/02/16 13:06 APTT 38 SECONDS (21-34) H 08/02/16 13:06 - Constitutional Appears: Chronically Ill - Head Exam Head Exam: ATRAUMATIC - Eye Exam Eye Exam: Normal appearance - ENT Exam ENT Exam: Mucous Membranes Moist - Respiratory Exam Respiratory Exam: NORMAL BREATHING PATTERN - Cardiovascular Exam Cardiovascular Exam: REGULAR RHYTHM - GI/Abdominal Exam GI & Abdominal Exam: Normal Bowel Sounds - Exam External exam: NORMAL EXTERNAL EXAM - Extremities Exam Extremities Exam: Normal Inspection - Neurological Exam Neurological Exam: Awake - Psychiatric Exam Psychiatric exam: Agitated - Skin Skin Exam: Dry Assessment and Plan (1) Alcohol abuse with intoxication Assessment & Plan: pt improving echo nl ef out pt stress Status: Acute (2) Alcohol withdrawal syndrome Status: Acute
[2016-08-07] MEDS: Pantoprazole 40 mg EC Tab PO SCH (09:51)
[2016-08-07] MEDS: Folic Acid 1 MG, Thiamine 100 MG, Multivitamin (MVI) 10 ML in Dextrose 5% In Water 1,00... IV SCH (09:52)
[2016-08-07] MEDS: Enoxaparin 40 mg Syringe SC SCH (09:53)
--- NOTE | 2016-08-07 11:32 | PCM.PYCHPN ---
Psychiatric Progress Note - Psychiatric Progress Note Patient seen today, length of contact: 18 min Patient Chief Complaint: "I'm depressed" Problems Identified/Issues Discussed: The patient is seen, chart reviewed and case discussed. Patient is no longer in withdrawal. He reports depressive symptoms even though alcohol detox is complete. Denies suicidal ideation or plans. No hallucinations but he said he had heard recently some voices. He is mostly depressed about his life afterwards detox, i.e. place to stay, money etc. He agreed to start on an antidepressant. Risks discussed. He also agreed to start on naltrexone for alcohol cravings. All risks and benefits and alternatives discussed. He understood. Support given Medication Change: Yes (start Zoloft and naltrexone) Medical Record Reviewed: Yes Mental Status Examination - Cognitive Function Orientation: Person, Place, Situation, Time Memory: Impaired Attention: Poor Concentration: Poor Association: WNL Fund of Knowledge: Poor - Mood Mood: Depressed, Anxious - Affect Affect: Constricted - Speech Speech: Slurred - Formal Thought Process Formal Thought Process: No Impairment - Suicidal Ideation Suicidal Ideation: No - Homicidal Ideation Homicidal Ideation: No Goal/Treatment Plan - Goal/Treatment Plan Need for Continued Stay: Discharge may exacerbated symptoms, Severe functional impairment, Other (mmedical workup) Progress Toward Problem(s) and Goals/Treatment Plan: DT: - detox ended - Hydration - Vitamins - Anti-epileptics as needed - gabapentin - prn Haldol Depression: - Zoloft 50 mg qd - Support and CBT Alcoholism: - Refer to rehab, i.e. [facility], when medically cleared and completes detox - AA - [place] for abstinence - Naltrexone 50 mg/d
--- NOTE | 2016-08-07 14:44 | CP.PCM.PN ---
Subjective - Date & Time of Evaluation Date of Evaluation: 08/07/16 Time of Evaluation: 12:00 - Subjective Subjective: clinically same Objective - Vital Signs/Intake and Output Vital Signs (last 24 hours): Temp Pulse Resp BP Pulse Ox 97.9 F 82 19 120/71 96 08/07/16 08:20 08/07/16 08:20 08/07/16 08:20 08/07/16 08:20 08/07/16 08:20 Intake and Output: 08/07/16 08/07/16 06:59 18:59 Output Total 150 Balance -150 - Medications Medications: Current Medications Amlodipine Besylate (Norvasc) 10 mg PO DAILY [facility] Last Admin: 08/07/16 09:51 Dose: 10 mg Aspirin (Aspirin) 325 mg PO DAILY [facility] Last Admin: 08/07/16 09:52 Dose: 325 mg Benztropine Mesylate (Cogentin) 1 mg IM Q6H PRN PRN Reason: acute dystonia Enoxaparin Sodium (Lovenox) 40 mg SC DAILY [facility] Last Admin: 08/07/16 09:53 Dose: 40 mg Gabapentin (Neurontin) 300 mg PO TID [facility] Last Admin: 08/07/16 13:52 Dose: 300 mg Haloperidol Lactate (Haldol) 5 mg IM Q4H PRN PRN Reason: severe agitation Folic Acid 1 mg/ Thiamine HCl 100 mg/ Multivitamins/Vitamin C 10 ml/ Dextrose 1 ,011.2 mls @ 100 mls/hr IV DAILY [facility] Last Admin: 08/07/16 09:52 Dose: 100 mls/hr Lorazepam (Ativan) 1 mg IVP Q4H PRN PRN Reason: Agitation Metoprolol Tartrate (Lopressor) 50 mg PO BID [facility] Last Admin: 08/07/16 09:51 Dose: 50 mg Naltrexone HCl (Revia) 50 mg PO DAILY [facility] Last Admin: 08/07/16 12:24 Dose: 50 mg Pantoprazole Sodium (Protonix Ec Tab) 40 mg PO DAILY [facility] Last Admin: 08/07/16 09:51 Dose: 40 mg Sertraline HCl (Zoloft) 50 mg PO DAILY [facility] Last Admin: 08/07/16 11:59 Dose: 50 mg - Labs Labs: 08/05/16 05:58 08/05/16 05:58 PT 12.4 SECONDS (9.7-12.2) H 08/02/16 13:06 INR 1.1 08/02/16 13:06 APTT 38 SECONDS (21-34) H 08/02/16 13:06 - Constitutional Appears: Well - Head Exam Head Exam: ATRAUMATIC, NORMAL INSPECTION, NORMOCEPHALIC - Eye Exam Eye Exam: EOMI, Normal appearance, PERRL Pupil Exam: NORMAL ACCOMODATION, PERRL - ENT Exam ENT Exam: Mucous Membranes Moist, Normal Exam - Neck Exam Neck Exam: Full ROM, Normal Inspection. absent: Lymphadenopathy - Respiratory Exam Respiratory Exam: Decreased Breath Sounds - Cardiovascular Exam Cardiovascular Exam: REGULAR RHYTHM, +S1, +S2 - GI/Abdominal Exam GI & Abdominal Exam: Soft, Diminished Bowel Sounds - Rectal Exam Rectal Exam: Deferred Assessment and Plan (1) Acute bronchitis Status: Acute (2) Acute pancreatitis Status: Acute (3) Alcohol abuse Status: Acute (4) Alcohol abuse with intoxication Status: Acute (5) Alcohol dependence Status: Acute (6) Alcohol intoxication Status: Acute (7) Alcohol withdrawal syndrome Status: Acute (8) Alcoholic gastritis Status: Acute (9) Bed bug bite Status: Acute (10) Blood glucose abnormal Status: Acute (11) Chest pain Status: Acute (12) Chest pain Status: Acute (13) Chest pain Status: Acute (14) Chronic knee pain Status: Acute (15) Closed right tibial fracture Status: Acute (16) Dermatitis Status: Acute (17) Diarrhea Status: Acute (18) Elevated lipase Status: Acute (19) Encounter for medical assessment Status: Acute (20) Encounter for removal of sutures Status: Acute (21) Epigastric abdominal pain Status: Acute (22) Falls Status: Acute (23) GI bleed Status: Acute (24) Head injury Status: Acute (25) Head injury, acute Status: Acute (26) Homeless single person Status: Acute (27) Hypokalemia Status: Acute (28) Hypomagnesemia Status: Acute (29) Hyponatremia Status: Acute (30) LFT elevation Status: Acute (31) Laceration Status: Acute (32) Leg pain Status: Acute (33) Lower extremity edema Status: Acute (34) Microcytic anemia Status: Acute (35) Non-cardiac chest pain Status: Acute (36) Opioid abuse Status: Acute (37) Pancreatitis Status: Acute (38) Patient left before treatment completed Status: Acute (39) Pneumonia Status: Acute (40) Prophylactic measure Status: Acute (41) Removal of staple Status: Acute (42) Scabies Status: Acute (43) Syncope Status: Acute (44) Toe fracture, left Status: Acute (45) HTN (hypertension) Status: Chronic (46) Impaired glucose tolerance Status: Chronic - Assessment and Plan (Free Text) Plan: Follow-up cardiology Follow-up psychiatry Continue aspirin Lovenox Lopressor Cogentin Protonix Wound care
--- NOTE | 2016-08-07 14:49 | CP.PCM.PN ---
Objective - Vital Signs/Intake and Output Vital Signs (last 24 hours): Temp Pulse Resp BP Pulse Ox 97.9 F 82 19 120/71 96 08/07/16 08:20 08/07/16 08:20 08/07/16 08:20 08/07/16 08:20 08/07/16 08:20 Intake and Output: 08/07/16 08/07/16 06:59 18:59 Output Total 150 Balance -150 - Medications Medications: Current Medications Amlodipine Besylate (Norvasc) 10 mg PO DAILY [facility] Last Admin: 08/07/16 09:51 Dose: 10 mg Aspirin (Aspirin) 325 mg PO DAILY [facility] Last Admin: 08/07/16 09:52 Dose: 325 mg Benztropine Mesylate (Cogentin) 1 mg IM Q6H PRN PRN Reason: acute dystonia Enoxaparin Sodium (Lovenox) 40 mg SC DAILY [facility] Last Admin: 08/07/16 09:53 Dose: 40 mg Gabapentin (Neurontin) 300 mg PO TID [facility] Last Admin: 08/07/16 13:52 Dose: 300 mg Haloperidol Lactate (Haldol) 5 mg IM Q4H PRN PRN Reason: severe agitation Folic Acid 1 mg/ Thiamine HCl 100 mg/ Multivitamins/Vitamin C 10 ml/ Dextrose 1 ,011.2 mls @ 100 mls/hr IV DAILY [facility] Last Admin: 08/07/16 09:52 Dose: 100 mls/hr Lorazepam (Ativan) 1 mg IVP Q4H PRN PRN Reason: Agitation Metoprolol Tartrate (Lopressor) 50 mg PO BID [facility] Last Admin: 08/07/16 09:51 Dose: 50 mg Naltrexone HCl (Revia) 50 mg PO DAILY [facility] Last Admin: 08/07/16 12:24 Dose: 50 mg Pantoprazole Sodium (Protonix Ec Tab) 40 mg PO DAILY [facility] Last Admin: 08/07/16 09:51 Dose: 40 mg Sertraline HCl (Zoloft) 50 mg PO DAILY [facility] Last Admin: 08/07/16 11:59 Dose: 50 mg - Labs Labs: 08/05/16 05:58 08/05/16 05:58 PT 12.4 SECONDS (9.7-12.2) H 08/02/16 13:06 INR 1.1 08/02/16 13:06 APTT 38 SECONDS (21-34) H 08/02/16 13:06
--- NOTE | 2016-08-08 07:14 | CP.PCM.PN ---
Subjective - Date & Time of Evaluation Date of Evaluation: 08/08/16 Time of Evaluation: 07:02 - Subjective Subjective: Pt no cp no sob tolerating PO Objective - Vital Signs/Intake and Output Vital Signs (last 24 hours): Temp Pulse Resp BP Pulse Ox 98.2 F 80 20 144/73 94 L 08/07/16 23:38 08/07/16 23:38 08/07/16 23:38 08/07/16 23:38 08/07/16 23:38 - Medications Medications: Current Medications Amlodipine Besylate (Norvasc) 10 mg PO DAILY [facility] Last Admin: 08/07/16 09:51 Dose: 10 mg Aspirin (Aspirin) 325 mg PO DAILY [facility] Last Admin: 08/07/16 09:52 Dose: 325 mg Benztropine Mesylate (Cogentin) 1 mg IM Q6H PRN PRN Reason: acute dystonia Enoxaparin Sodium (Lovenox) 40 mg SC DAILY [facility] Last Admin: 08/07/16 09:53 Dose: 40 mg Gabapentin (Neurontin) 300 mg PO TID [facility] Last Admin: 08/07/16 17:27 Dose: 300 mg Haloperidol Lactate (Haldol) 5 mg IM Q4H PRN PRN Reason: severe agitation Folic Acid 1 mg/ Thiamine HCl 100 mg/ Multivitamins/Vitamin C 10 ml/ Dextrose 1 ,011.2 mls @ 100 mls/hr IV DAILY [facility] Last Admin: 08/07/16 09:52 Dose: 100 mls/hr Lorazepam (Ativan) 1 mg IVP Q4H PRN PRN Reason: Agitation Last Admin: 08/07/16 23:00 Dose: 1 mg Metoprolol Tartrate (Lopressor) 50 mg PO BID [facility] Last Admin: 08/07/16 17:01 Dose: Not Given Naltrexone HCl (Revia) 50 mg PO DAILY [facility] Last Admin: 08/07/16 12:24 Dose: 50 mg Pantoprazole Sodium (Protonix Ec Tab) 40 mg PO DAILY [facility] Last Admin: 08/07/16 09:51 Dose: 40 mg Sertraline HCl (Zoloft) 50 mg PO DAILY [facility] Last Admin: 08/07/16 11:59 Dose: 50 mg - Labs Labs: 08/05/16 05:58 08/05/16 05:58 PT 12.4 SECONDS (9.7-12.2) H 08/02/16 13:06 INR 1.1 08/02/16 13:06 APTT 38 SECONDS (21-34) H 08/02/16 13:06 - Constitutional Appears: Chronically Ill - Head Exam Head Exam: NORMOCEPHALIC - Eye Exam Eye Exam: Normal appearance - ENT Exam ENT Exam: Mucous Membranes Moist - Respiratory Exam Respiratory Exam: Clear to Ausculation Bilateral - Cardiovascular Exam Cardiovascular Exam: REGULAR RHYTHM - GI/Abdominal Exam GI & Abdominal Exam: Normal Bowel Sounds - Extremities Exam Extremities Exam: absent: Pedal Edema - Neurological Exam Neurological Exam: Awake - Psychiatric Exam Psychiatric exam: Agitated - Skin Skin Exam: Dry Assessment and Plan (1) Alcohol abuse with intoxication Assessment & Plan: Much improved no cp continue withdrawal meds follow up est as out pt Status: Acute (2) Alcohol withdrawal syndrome Status: Acute
[2016-08-08] MEDS: Folic Acid 1 MG, Thiamine 100 MG, Multivitamin (MVI) 10 ML in Dextrose 5% In Water 1,00... IV SCH (09:32)
[2016-08-08] MEDS: Enoxaparin 40 mg Syringe SC SCH (09:34)
[2016-08-08] MEDS: Pantoprazole 40 mg EC Tab PO SCH (09:34)
--- NOTE | 2016-08-08 11:25 | PCM.PYCHPN ---
Psychiatric Progress Note - Psychiatric Progress Note Patient seen today, length of contact: 15 min Patient Chief Complaint: "I'm feeling better today" Problems Identified/Issues Discussed: The patient is seen, chart reviewed and case discussed. Still depressed but less. No wdw sxs but he says he had some yesterday afternoon, "I was shaking" Support given. after care discussed, CO used No SEs from gabapentin, naltrexone or zoloft Medication Change: No Medical Record Reviewed: Yes Mental Status Examination - Cognitive Function Orientation: Person, Place, Situation, Time Memory: Impaired Attention: WNL Concentration: Poor Association: WNL Fund of Knowledge: Poor - Mood Mood: Depressed, Anxious - Affect Affect: Constricted - Speech Speech: Appropriate - Formal Thought Process Formal Thought Process: No Impairment - Suicidal Ideation Suicidal Ideation: No - Homicidal Ideation Homicidal Ideation: No Goal/Treatment Plan - Goal/Treatment Plan Need for Continued Stay: Discharge may exacerbated symptoms, Severe functional impairment, Other (mmedical workup) Progress Toward Problem(s) and Goals/Treatment Plan: Depression: - Zoloft 50 mg qd - Support and CBT Alcoholism: - Refer to rehab, i.e. [facility], when medically cleared - AA - CO for abstinence - Naltrexone 50 mg/d
[2016-08-08] MEDS ORDERED: Potassium Chloride 10 mEq ER Tab PO STA (16:19)
--- NOTE | 2016-08-08 16:24 | CP.PCM.PN ---
Subjective - Date & Time of Evaluation Date of Evaluation: 08/08/16 Time of Evaluation: 16:00 - Subjective Subjective: Clinically afebrile Objective - Vital Signs/Intake and Output Vital Signs (last 24 hours): Temp Pulse Resp BP Pulse Ox 97.6 F 76 20 139/72 97 08/08/16 08:00 08/08/16 09:35 08/08/16 08:00 08/08/16 09:35 08/08/16 08:00 - Medications Medications: Current Medications Amlodipine Besylate (Norvasc) 10 mg PO DAILY [facility] Last Admin: 08/08/16 09:34 Dose: 10 mg Aspirin (Aspirin) 325 mg PO DAILY [facility] Last Admin: 08/08/16 09:33 Dose: 325 mg Benztropine Mesylate (Cogentin) 1 mg IM Q6H PRN PRN Reason: acute dystonia Enoxaparin Sodium (Lovenox) 40 mg SC DAILY [facility] Last Admin: 08/08/16 09:34 Dose: 40 mg Gabapentin (Neurontin) 300 mg PO TID [facility] Last Admin: 08/08/16 13:29 Dose: 300 mg Haloperidol Lactate (Haldol) 5 mg IM Q4H PRN PRN Reason: severe agitation Lorazepam (Ativan) 1 mg IVP Q4H PRN PRN Reason: Agitation Last Admin: 08/07/16 23:00 Dose: 1 mg Metoprolol Tartrate (Lopressor) 50 mg PO BID [facility] Last Admin: 08/08/16 09:34 Dose: 50 mg Naltrexone HCl (Revia) 50 mg PO DAILY [facility] Last Admin: 08/08/16 11:26 Dose: 50 mg Pantoprazole Sodium (Protonix Ec Tab) 40 mg PO DAILY [facility] Last Admin: 08/08/16 09:34 Dose: 40 mg Sertraline HCl (Zoloft) 50 mg PO DAILY [facility] Last Admin: 08/08/16 09:34 Dose: 50 mg - Labs Labs: 08/05/16 05:58 08/05/16 05:58 PT 12.4 SECONDS (9.7-12.2) H 08/02/16 13:06 INR 1.1 08/02/16 13:06 APTT 38 SECONDS (21-34) H 08/02/16 13:06 Assessment and Plan (1) Acute bronchitis Status: Acute (2) Acute pancreatitis Status: Acute (3) Alcohol abuse Status: Acute (4) Alcohol abuse with intoxication Status: Acute (5) Alcohol dependence Status: Acute (6) Alcohol intoxication Status: Acute (7) Alcohol withdrawal syndrome Status: Acute (8) Alcoholic gastritis Status: Acute (9) Bed bug bite Status: Acute (10) Blood glucose abnormal Status: Acute (11) Chest pain Status: Acute (12) Chest pain Status: Acute (13) Chest pain Status: Acute (14) Chronic knee pain Status: Acute (15) Closed right tibial fracture Status: Acute (16) Dermatitis Status: Acute (17) Diarrhea Status: Acute (18) Elevated lipase Status: Acute (19) Encounter for medical assessment Status: Acute (20) Encounter for removal of sutures Status: Acute (21) Epigastric abdominal pain Status: Acute (22) Falls Status: Acute (23) GI bleed Status: Acute (24) Head injury Status: Acute (25) Head injury, acute Status: Acute (26) Homeless single person Status: Acute (27) Hypokalemia Status: Acute (28) Hypomagnesemia Status: Acute (29) Hyponatremia Status: Acute (30) LFT elevation Status: Acute (31) Laceration Status: Acute (32) Leg pain Status: Acute (33) Lower extremity edema Status: Acute (34) Microcytic anemia Status: Acute (35) Non-cardiac chest pain Status: Acute (36) Opioid abuse Status: Acute (37) Pancreatitis Status: Acute (38) Patient left before treatment completed Status: Acute (39) Pneumonia Status: Acute (40) Prophylactic measure Status: Acute (41) Removal of staple Status: Acute (42) Scabies Status: Acute (43) Syncope Status: Acute (44) Toe fracture, left Status: Acute (45) HTN (hypertension) Status: Chronic (46) Impaired glucose tolerance Status: Chronic - Assessment and Plan (Free Text) Plan: Follow-up cardiology Follow-up psychiatry Continue aspirin Norvasc Lopressor Cogentin Protonix
[2016-08-08] MEDS ORDERED: Potassium Chloride 20 mEq ER Tab PO ONE (18:15)
[2016-08-09 07:06] LABS: BASO % 0.9 % (0.0-2.0); EOS # 0.4 K/uL (0.0-0.7); EOS % 7.3 % (0.0-4.0); HEMATOCRIT 31.8 % (35.0-51.0); LYMPH # 1.6 K/uL (1.0-4.3); LYMPH % 27.6 % (20.0-40.0); MEAN CELL VOLUME 73.5 fL (80.0-94.0); MEAN CORPUSCULAR HEMOGLOBIN 22.9 pg (27.0-31.0); MEAN CORPUSCULAR HGB CONC 31.2 g/dL (33.0-37.0); MEAN PLATELET VOLUME 8.4 fL (7.2-11.7); MONO # 0.9 K/uL (0.0-0.8); MONO % 15.9 % (0.0-10.0); NRBC % 0.1 % (0.0-2.0); RED CELL DISTRIBUTION WIDTH 15.7 % (11.5-14.5); WHITE BLOOD COUNT 5.7 K/uL (4.8-10.8)
--- NOTE | 2016-08-09 07:13 | CP.PCM.PN ---
<Micah Thomas - Last Filed: 08/09/16 11:50> Subjective - Date & Time of Evaluation Date of Evaluation: 08/09/16 Time of Evaluation: 07:00 - Subjective Subjective: Medicine Note- Dr. Tobias's service Patient was seen and exmained at bedside. Patient reports no acute complaints at this time. He appears alert, awake and oriented. No events overnight per nursing. Objective - Vital Signs/Intake and Output Vital Signs (last 24 hours): Temp Pulse Resp BP Pulse Ox 98 F 70 20 140/81 97 08/08/16 23:50 08/09/16 01:09 08/08/16 23:50 08/08/16 23:50 08/08/16 23:50 Intake and Output: 08/09/16 08/09/16 06:59 18:59 Output Total 350 Balance -350 - Medications Medications: Current Medications Amlodipine Besylate (Norvasc) 10 mg PO DAILY [facility] Last Admin: 08/08/16 09:34 Dose: 10 mg Aspirin (Aspirin) 325 mg PO DAILY [facility] Last Admin: 08/08/16 09:33 Dose: 325 mg Benztropine Mesylate (Cogentin) 1 mg IM Q6H PRN PRN Reason: acute dystonia Enoxaparin Sodium (Lovenox) 40 mg SC DAILY [facility] Last Admin: 08/08/16 09:34 Dose: 40 mg Gabapentin (Neurontin) 300 mg PO TID [facility] Last Admin: 08/08/16 18:25 Dose: 300 mg Haloperidol Lactate (Haldol) 5 mg IM Q4H PRN PRN Reason: severe agitation Lorazepam (Ativan) 1 mg IVP Q4H PRN PRN Reason: Agitation Last Admin: 08/07/16 23:00 Dose: 1 mg Metoprolol Tartrate (Lopressor) 50 mg PO BID [facility] Last Admin: 08/08/16 18:26 Dose: 50 mg Naltrexone HCl (Revia) 50 mg PO DAILY [facility] Last Admin: 08/08/16 11:26 Dose: 50 mg Pantoprazole Sodium (Protonix Ec Tab) 40 mg PO DAILY [facility] Last Admin: 08/08/16 09:34 Dose: 40 mg Sertraline HCl (Zoloft) 50 mg PO DAILY [facility] Last Admin: 08/08/16 09:34 Dose: 50 mg - Labs Labs: 08/05/16 05:58 08/05/16 05:58 PT 12.4 SECONDS (9.7-12.2) H 08/02/16 13:06 INR 1.1 08/02/16 13:06 APTT 38 SECONDS (21-34) H 08/02/16 13:06 - Constitutional Appears: Non-toxic, No Acute Distress - Head Exam Head Exam: ATRAUMATIC, NORMAL INSPECTION, NORMOCEPHALIC - Eye Exam Pupil Exam: NORMAL ACCOMODATION, PERRL - ENT Exam ENT Exam: Mucous Membranes Moist - Respiratory Exam Respiratory Exam: Clear to Ausculation Bilateral, NORMAL BREATHING PATTERN. absent: Prolonged Expiratory Phase, Rales, Rhonchi, Wheezes - Cardiovascular Exam Cardiovascular Exam: REGULAR RHYTHM, +S1, +S2 - GI/Abdominal Exam GI & Abdominal Exam: Soft, Normal Bowel Sounds. absent: Tenderness, Diminished Bowel Sounds, Hypoactive Bowel Sounds - Extremities Exam Extremities Exam: Normal Capillary Refill, Normal Inspection - Neurological Exam Neurological Exam: Alert, Awake, Oriented x3 - Psychiatric Exam Psychiatric exam: Normal Affect, Normal Mood - Skin Skin Exam: Dry, Intact, Normal Color, Warm Assessment and Plan - Assessment and Plan (Free Text) Assessment: (1) Chest pain Assessment and Plan: Troponins #1: 0.170, #2: 0.0220, #3: 0.0150. CK-MB: 5.48, 4.03, 3.74 EKG: (08/03/16)Normal sinus rhythm, Q waves present in V1 and V2. Prolonged QTc. Possible septal infarct of unknown age. (07/10/16) Normal sinus rhythm, first degree AV block ECHO: (08/20/14): EF: 77%, mild LVH UDS: negative ECHO: (08/03/16): normal with EF 55-60% ASA 325 mg PO daily Norvasc 10 mg PO daily Lopressor 50 mg PO BID As per Dr. Kilgore, no longer will perform stress test on this visit. May need one outpatient. Status: Acute (2) Lower extremity edema Assessment and Plan: BNP 60.1 on admission. CXR on admission showed cardiomegaly with mild venous congestion. ECHO: (08/20/14): EF: 77%, mild LVH. ECHO: (08/03/16): normal with EF 55-60% LE Dopplers negative for DVT b/l. Wound care ordered for stasis dermatitis of lower extremities. Status: Acute (3) HTN (hypertension) Assessment and Plan: Lopressor 50 mg PO BID Norvasc 10 mg PO daily Patient currently confused and refusing some PO meds. If BP elevated, will consider IV options. Status: Chronic (4) Alcohol withdrawal syndrome Assessment and Plan: Consult Psych- Dr. García- refer to rehab when medically stable Ativan 1mg IVP Q4h PRN Seizure precautions. Continue Banana bag Status: Acute (5) Agitation Assessment and Plan: Patient no longer on 2 point restrains as he is calmer and more oriented now Continue Haldol 5mg IM Q4h PRN Continue Cogentin 1mg IM Q6h PRN (6) Depression Assessment and Plan: Continue Zoloft 50mg PO Daily (7) Prophylactic Measure Assessment and Plan: Protonix 40mg PO Daily Lovenox 40mg SC Daily All medical management as per Dr. Tobias. DC Planning. <Anh Tobias S - Last Filed: 08/10/16 13:53> Objective - Vital Signs/Intake and Output Vital Signs (last 24 hours): Temp Pulse Resp BP Pulse Ox 98.4 F 72 20 101/65 97 08/10/16 08:30 08/10/16 08:30 08/10/16 08:30 08/10/16 08:30 08/10/16 08:30 - Medications Medications: Current Medications Amlodipine Besylate (Norvasc) 10 mg PO DAILY [facility] Last Admin: 08/10/16 10:42 Dose: 10 mg Aspirin (Aspirin) 325 mg PO DAILY [facility] Last Admin: 08/10/16 10:41 Dose: 325 mg Benztropine Mesylate (Cogentin) 1 mg IM Q6H PRN PRN Reason: acute dystonia Gabapentin (Neurontin) 300 mg PO TID [facility] Last Admin: 08/10/16 13:44 Dose: 300 mg Haloperidol Lactate (Haldol) 5 mg IM Q4H PRN PRN Reason: severe agitation Lorazepam (Ativan) 1 mg IVP Q4H PRN PRN Reason: Agitation Last Admin: 08/07/16 23:00 Dose: 1 mg Metoprolol Tartrate (Lopressor) 50 mg PO BID [facility] Last Admin: 08/10/16 10:41 Dose: 50 mg Naltrexone HCl (Revia) 50 mg PO DAILY [facility] Last Admin: 08/09/16 10:02 Dose: 50 mg Pantoprazole Sodium (Protonix Ec Tab) 40 mg PO DAILY [facility] Last Admin: 08/10/16 10:41 Dose: 40 mg Sertraline HCl (Zoloft) 50 mg PO DAILY [facility] Last Admin: 08/10/16 10:42 Dose: 50 mg - Labs Labs: 08/10/16 06:12 08/10/16 06:12 PT 12.4 SECONDS (9.7-12.2) H 08/02/16 13:06 INR 1.1 08/02/16 13:06 APTT 38 SECONDS (21-34) H 08/02/16 13:06 Attending/Attestation - Attestation I have personally seen and examined this patient.: Yes I have fully participated in the care of the patient.: Yes I have reviewed all pertinent clinical information, including history, physical exam and plan: Yes Notes (Text): admited iwth yocasta much better will try for dasia as pt agrees if insurance qualifies
[2016-08-09 07:41] LABS: CHLORIDE 97 mmol/L (98-107)
[2016-08-09 07:42] LABS: POTASSIUM 4.5 mmol/L (3.6-5.2); SODIUM 133 mmol/L (132-148)
[2016-08-09 07:44] LABS: ALB/GLOB RATIO 0.9 (1.0-2.1); ALKALINE PHOSPHATASE 69 U/L (38-126); ALT/SGPT 62 U/L (21-72); AST/SGOT 84 U/L (17-59); BILIRUBIN,TOTAL 0.8 mg/dL (0.2-1.3); BLOOD UREA NITROGEN 15 mg/dL (9-20); CARBON DIOXIDE 25 mmol/L (22-30); GFR AFRICAN-AMERICAN > 60; GLUCOSE,RANDOM 99 mg/dL (75-110); TOTAL PROTEIN 8.3 g/dL (6.3-8.3)
[2016-08-09 07:45] LABS: MAGNESIUM 1.6 mg/dL (1.6-2.3); PHOSPHOROUS 3.3 mg/dL (2.5-4.5)
--- NOTE | 2016-08-09 09:51 | CP.PCM.PN ---
<Danna Barnes - Last Filed: 08/09/16 10:39> Subjective - Date & Time of Evaluation Date of Evaluation: 08/09/16 Time of Evaluation: 09:48 - Subjective Subjective: PGY-[address] Kilgore Pt was seen lying in bed. Easy awaken. No acute complaint per 10 point review. Objective - Vital Signs/Intake and Output Vital Signs (last 24 hours): Temp Pulse Resp BP Pulse Ox 98.2 F 70 20 124/66 97 08/09/16 07:00 08/09/16 07:00 08/09/16 07:00 08/09/16 07:00 08/09/16 07:00 Intake and Output: 08/09/16 08/09/16 06:59 18:59 Output Total 350 Balance -350 - Medications Medications: Current Medications Amlodipine Besylate (Norvasc) 10 mg PO DAILY [facility] Last Admin: 08/08/16 09:34 Dose: 10 mg Aspirin (Aspirin) 325 mg PO DAILY [facility] Last Admin: 08/08/16 09:33 Dose: 325 mg Benztropine Mesylate (Cogentin) 1 mg IM Q6H PRN PRN Reason: acute dystonia Enoxaparin Sodium (Lovenox) 40 mg SC DAILY [facility] Last Admin: 08/08/16 09:34 Dose: 40 mg Gabapentin (Neurontin) 300 mg PO TID [facility] Last Admin: 08/08/16 18:25 Dose: 300 mg Haloperidol Lactate (Haldol) 5 mg IM Q4H PRN PRN Reason: severe agitation Lorazepam (Ativan) 1 mg IVP Q4H PRN PRN Reason: Agitation Last Admin: 08/07/16 23:00 Dose: 1 mg Metoprolol Tartrate (Lopressor) 50 mg PO BID [facility] Last Admin: 08/08/16 18:26 Dose: 50 mg Naltrexone HCl (Revia) 50 mg PO DAILY [facility] Last Admin: 08/08/16 11:26 Dose: 50 mg Pantoprazole Sodium (Protonix Ec Tab) 40 mg PO DAILY [facility] Last Admin: 08/08/16 09:34 Dose: 40 mg Sertraline HCl (Zoloft) 50 mg PO DAILY [facility] Last Admin: 08/08/16 09:34 Dose: 50 mg - Labs Labs: 08/09/16 07:00 08/09/16 07:00 PT 12.4 SECONDS (9.7-12.2) H 08/02/16 13:06 INR 1.1 08/02/16 13:06 APTT 38 SECONDS (21-34) H 08/02/16 13:06 - Constitutional Appears: No Acute Distress - Head Exam Head Exam: ATRAUMATIC, NORMOCEPHALIC - Eye Exam Eye Exam: EOMI, Normal appearance Pupil Exam: NORMAL ACCOMODATION - ENT Exam ENT Exam: Mucous Membranes Moist - Respiratory Exam Respiratory Exam: Clear to Ausculation Bilateral, NORMAL BREATHING PATTERN. absent: Rales, Rhonchi, Wheezes - Cardiovascular Exam Cardiovascular Exam: REGULAR RHYTHM, +S1, +S2. absent: Murmur - GI/Abdominal Exam GI & Abdominal Exam: Soft, Normal Bowel Sounds. absent: Tenderness - Extremities Exam Extremities Exam: Normal Capillary Refill, Pedal Edema Additional comments: venous stasis - Back Exam Back Exam: absent: CVA tenderness (L), CVA tenderness (R) - Neurological Exam Neurological Exam: Alert, Awake, Oriented x3 - Psychiatric Exam Psychiatric exam: Normal Affect, Normal Mood - Skin Skin Exam: Dry, Warm Assessment and Plan - Assessment and Plan (Free Text) Plan: 56 M, with PMH hypertension, seizures (alcohol related) and alcohol abuse who presents for cardiac evaluation of positional and dypsnic chest pain that started two days ago prior to admission, continuous, substernal and dull, non- radiating Q waves present in V1 and V2. Prolonged QTc. CAD Atypical chest pain Sinus tachycardia - resolved; likely from alcohol withdrawal - ASA 325 mg PO daily - Norvasc 10 mg PO daily - Lopressor 50 mg PO BID - New Q waves found on lateral leads on EKG done on admission (compared to EKG done 07/10/16). - Outpatient stress test - Follow up with Dr. Kilgore in clinic within 1 week of discharge Lower extremity edema - BNP 60.1 on admission. - CXR on admission showed cardiomegaly with mild venous congestion. - LE Dopplers negative for DVT b/l. - Wound care ordered for stasis dermatitis of lower extremities. HTN (hypertension) - Lopressor 50 mg PO BID (new med during this hospitalization) - Norvasc 10 mg PO daily Hx Alcohol abuse - Consult Psych- Dr. García- refer to rehab when medically stable - [employer] for etoh cessation Prophylactic - Protonix 40mg PO Daily - Lovenox 40mg SC Daily Imaging - Troponins #1: 0.170, #2: 0.0220, #3: 0.0150. - CK-MB: 5.48, 4.03, 3.74 - EKG: (08/03/16) Normal sinus rhythm, Q waves present in V1 and V2. Prolonged QTc. Possible septal infarct of unknown age; (07/10/16) Normal sinus rhythm, first degree AV block - Echo: (08/03/16): EF 55-60% - UDS: negative S/R/D/w Dr. Kilgore <Dariela Kilgore - Last Filed: 08/09/16 19:34> Objective - Vital Signs/Intake and Output Vital Signs (last 24 hours): Temp Pulse Resp BP Pulse Ox 97.6 F 71 20 118/68 96 08/09/16 15:43 08/09/16 15:43 08/09/16 15:43 08/09/16 15:43 08/09/16 15:43 - Medications Medications: Current Medications Amlodipine Besylate (Norvasc) 10 mg PO DAILY [facility] Last Admin: 08/09/16 10:02 Dose: 10 mg Aspirin (Aspirin) 325 mg PO DAILY [facility] Last Admin: 08/09/16 10:02 Dose: 325 mg Benztropine Mesylate (Cogentin) 1 mg IM Q6H PRN PRN Reason: acute dystonia Enoxaparin Sodium (Lovenox) 40 mg SC DAILY [facility] Last Admin: 08/09/16 10:02 Dose: 40 mg Gabapentin (Neurontin) 300 mg PO TID [facility] Last Admin: 08/09/16 18:06 Dose: 300 mg Haloperidol Lactate (Haldol) 5 mg IM Q4H PRN PRN Reason: severe agitation Lorazepam (Ativan) 1 mg IVP Q4H PRN PRN Reason: Agitation Last Admin: 08/07/16 23:00 Dose: 1 mg Metoprolol Tartrate (Lopressor) 50 mg PO BID [facility] Last Admin: 08/09/16 18:06 Dose: 50 mg Naltrexone HCl (Revia) 50 mg PO DAILY [facility] Last Admin: 08/09/16 10:02 Dose: 50 mg Pantoprazole Sodium (Protonix Ec Tab) 40 mg PO DAILY [facility] Last Admin: 08/09/16 10:02 Dose: 40 mg Sertraline HCl (Zoloft) 50 mg PO DAILY [facility] Last Admin: 08/09/16 10:02 Dose: 50 mg - Labs Labs: 08/09/16 07:00 08/09/16 07:00 PT 12.4 SECONDS (9.7-12.2) H 08/02/16 13:06 INR 1.1 08/02/16 13:06 APTT 38 SECONDS (21-34) H 08/02/16 13:06 Attending/Attestation - Attestation I have personally seen and examined this patient.: Yes I have fully participated in the care of the patient.: Yes I have reviewed all pertinent clinical information, including history, physical exam and plan: Yes Notes (Text): 08/09/16 19:34 pt with less DTs psych following
[2016-08-09] MEDS: Pantoprazole 40 mg EC Tab PO SCH (10:02)
[2016-08-09] MEDS: Enoxaparin 40 mg Syringe SC SCH (10:02)
--- NOTE | 2016-08-09 18:01 | CP.PCM.PN ---
Subjective - Date & Time of Evaluation Date of Evaluation: 08/09/16 Time of Evaluation: 11:00 - Subjective Subjective: clinically same Objective - Vital Signs/Intake and Output Vital Signs (last 24 hours): Temp Pulse Resp BP Pulse Ox 97.6 F 71 20 118/68 96 08/09/16 15:43 08/09/16 15:43 08/09/16 15:43 08/09/16 15:43 08/09/16 15:43 Intake and Output: 08/09/16 08/09/16 06:59 18:59 Output Total 350 Balance -350 - Medications Medications: Current Medications Amlodipine Besylate (Norvasc) 10 mg PO DAILY [facility] Last Admin: 08/09/16 10:02 Dose: 10 mg Aspirin (Aspirin) 325 mg PO DAILY [facility] Last Admin: 08/09/16 10:02 Dose: 325 mg Benztropine Mesylate (Cogentin) 1 mg IM Q6H PRN PRN Reason: acute dystonia Enoxaparin Sodium (Lovenox) 40 mg SC DAILY [facility] Last Admin: 08/09/16 10:02 Dose: 40 mg Gabapentin (Neurontin) 300 mg PO TID [facility] Last Admin: 08/09/16 13:30 Dose: 300 mg Haloperidol Lactate (Haldol) 5 mg IM Q4H PRN PRN Reason: severe agitation Lorazepam (Ativan) 1 mg IVP Q4H PRN PRN Reason: Agitation Last Admin: 08/07/16 23:00 Dose: 1 mg Metoprolol Tartrate (Lopressor) 50 mg PO BID [facility] Last Admin: 08/09/16 10:02 Dose: 50 mg Naltrexone HCl (Revia) 50 mg PO DAILY [facility] Last Admin: 08/09/16 10:02 Dose: 50 mg Pantoprazole Sodium (Protonix Ec Tab) 40 mg PO DAILY [facility] Last Admin: 08/09/16 10:02 Dose: 40 mg Sertraline HCl (Zoloft) 50 mg PO DAILY [facility] Last Admin: 08/09/16 10:02 Dose: 50 mg - Labs Labs: 08/09/16 07:00 08/09/16 07:00 PT 12.4 SECONDS (9.7-12.2) H 08/02/16 13:06 INR 1.1 08/02/16 13:06 APTT 38 SECONDS (21-34) H 08/02/16 13:06 - Constitutional Appears: Well - Head Exam Head Exam: ATRAUMATIC, NORMAL INSPECTION, NORMOCEPHALIC - Eye Exam Eye Exam: EOMI, Normal appearance, PERRL Pupil Exam: NORMAL ACCOMODATION, PERRL - ENT Exam ENT Exam: Mucous Membranes Moist, Normal Exam - Neck Exam Neck Exam: Full ROM, Normal Inspection. absent: Lymphadenopathy - Respiratory Exam Respiratory Exam: Decreased Breath Sounds - Cardiovascular Exam Cardiovascular Exam: REGULAR RHYTHM, +S1, +S2 - GI/Abdominal Exam GI & Abdominal Exam: Soft, Diminished Bowel Sounds - Rectal Exam Rectal Exam: Deferred Assessment and Plan (1) Acute bronchitis Status: Acute (2) Acute pancreatitis Status: Acute (3) Alcohol abuse Status: Acute (4) Alcohol abuse with intoxication Status: Acute (5) Alcohol dependence Status: Acute (6) Alcohol intoxication Status: Acute (7) Alcohol withdrawal syndrome Status: Acute (8) Alcoholic gastritis Status: Acute (9) Bed bug bite Status: Acute (10) Blood glucose abnormal Status: Acute (11) Chest pain Status: Acute (12) Chest pain Status: Acute (13) Chest pain Status: Acute (14) Chronic knee pain Status: Acute (15) Closed right tibial fracture Status: Acute (16) Dermatitis Status: Acute (17) Diarrhea Status: Acute (18) Elevated lipase Status: Acute (19) Encounter for medical assessment Status: Acute (20) Encounter for removal of sutures Status: Acute (21) Epigastric abdominal pain Status: Acute (22) Falls Status: Acute (23) GI bleed Status: Acute (24) Head injury Status: Acute (25) Head injury, acute Status: Acute (26) Homeless single person Status: Acute (27) Hypokalemia Status: Acute (28) Hypomagnesemia Status: Acute (29) Hyponatremia Status: Acute (30) LFT elevation Status: Acute (31) Laceration Status: Acute (32) Leg pain Status: Acute (33) Lower extremity edema Status: Acute (34) Microcytic anemia Status: Acute (35) Non-cardiac chest pain Status: Acute (36) Opioid abuse Status: Acute (37) Pancreatitis Status: Acute (38) Patient left before treatment completed Status: Acute (39) Pneumonia Status: Acute (40) Prophylactic measure Status: Acute (41) Removal of staple Status: Acute (42) Scabies Status: Acute (43) Syncope Status: Acute (44) Toe fracture, left Status: Acute (45) HTN (hypertension) Status: Chronic (46) Impaired glucose tolerance Status: Chronic - Assessment and Plan (Free Text) Plan: Follow-up cardiology Follow-up psychiatry Continue aspirin Norvasc Lopressor Lovenox Protonix Cogentin
[2016-08-10 00:18] VITALS: O2SAT 97
[2016-08-10 06:31] LABS: CHLORIDE 99 mmol/L (98-107); POTASSIUM 4.3 mmol/L (3.6-5.2); SODIUM 136 mmol/L (132-148)
[2016-08-10 06:33] LABS: AST/SGOT 90 U/L (17-59); BILIRUBIN,TOTAL 0.7 mg/dL (0.2-1.3); CARBON DIOXIDE 28 mmol/L (22-30); GFR AFRICAN-AMERICAN > 60
[2016-08-10 06:34] LABS: ALKALINE PHOSPHATASE 70 U/L (38-126); ALT/SGPT 69 U/L (21-72); BLOOD UREA NITROGEN 16 mg/dL (9-20); CALCIUM 9.1 mg/dl (8.6-10.4); GLUCOSE,RANDOM 88 mg/dL (75-110); PHOSPHOROUS 4.4 mg/dL (2.5-4.5); TOTAL PROTEIN 8.2 g/dL (6.3-8.3)
[2016-08-10 06:35] LABS: MAGNESIUM 1.6 mg/dL (1.6-2.3)
--- NOTE | 2016-08-10 07:09 | CP.PCM.PN ---
<Micah Thomas - Last Filed: 08/10/16 13:28> Subjective - Date & Time of Evaluation Date of Evaluation: 08/10/16 Time of Evaluation: 07:40 - Subjective Subjective: Medicine note- Dr. Tobias's service Patient was seen and examined at bedside. Patient currently has no acute complaints. No events overnight, per nursing. Patient is agreeable to going to rehab. Objective - Vital Signs/Intake and Output Vital Signs (last 24 hours): Temp Pulse Resp BP Pulse Ox 97.8 F 68 18 131/75 97 08/10/16 00:00 08/10/16 00:00 08/10/16 00:00 08/10/16 00:00 08/10/16 00:00 - Medications Medications: Current Medications Amlodipine Besylate (Norvasc) 10 mg PO DAILY [facility] Last Admin: 08/09/16 10:02 Dose: 10 mg Aspirin (Aspirin) 325 mg PO DAILY [facility] Last Admin: 08/09/16 10:02 Dose: 325 mg Benztropine Mesylate (Cogentin) 1 mg IM Q6H PRN PRN Reason: acute dystonia Gabapentin (Neurontin) 300 mg PO TID [facility] Last Admin: 08/09/16 18:06 Dose: 300 mg Haloperidol Lactate (Haldol) 5 mg IM Q4H PRN PRN Reason: severe agitation Lorazepam (Ativan) 1 mg IVP Q4H PRN PRN Reason: Agitation Last Admin: 08/07/16 23:00 Dose: 1 mg Metoprolol Tartrate (Lopressor) 50 mg PO BID [facility] Last Admin: 08/09/16 18:06 Dose: 50 mg Naltrexone HCl (Revia) 50 mg PO DAILY [facility] Last Admin: 08/09/16 10:02 Dose: 50 mg Pantoprazole Sodium (Protonix Ec Tab) 40 mg PO DAILY [facility] Last Admin: 08/09/16 10:02 Dose: 40 mg Sertraline HCl (Zoloft) 50 mg PO DAILY [facility] Last Admin: 08/09/16 10:02 Dose: 50 mg - Labs Labs: 08/09/16 07:00 08/10/16 06:12 PT 12.4 SECONDS (9.7-12.2) H 08/02/16 13:06 INR 1.1 08/02/16 13:06 APTT 38 SECONDS (21-34) H 08/02/16 13:06 - Constitutional Appears: Non-toxic, No Acute Distress - Head Exam Head Exam: ATRAUMATIC, NORMAL INSPECTION, NORMOCEPHALIC - Eye Exam Pupil Exam: NORMAL ACCOMODATION, PERRL - ENT Exam ENT Exam: Mucous Membranes Moist - Respiratory Exam Respiratory Exam: Clear to Ausculation Bilateral, NORMAL BREATHING PATTERN. absent: Prolonged Expiratory Phase, Rales, Rhonchi, Wheezes - Cardiovascular Exam Cardiovascular Exam: REGULAR RHYTHM, +S1, +S2 - GI/Abdominal Exam GI & Abdominal Exam: Soft, Normal Bowel Sounds. absent: Tenderness, Diminished Bowel Sounds, Hernia, Hypoactive Bowel Sounds - Extremities Exam Extremities Exam: Normal Capillary Refill, Normal Inspection - Neurological Exam Neurological Exam: Alert, Awake, Oriented x3 - Psychiatric Exam Psychiatric exam: Normal Affect, Normal Mood - Skin Skin Exam: Dry, Intact, Normal Color, Warm Assessment and Plan - Assessment and Plan (Free Text) Assessment: (1) Chest pain Assessment and Plan: Troponins #1: 0.170, #2: 0.0220, #3: 0.0150. CK-MB: 5.48, 4.03, 3.74 EKG: (08/03/16)Normal sinus rhythm, Q waves present in V1 and V2. Prolonged QTc. Possible septal infarct of unknown age. (07/10/16) Normal sinus rhythm, first degree AV block ECHO: (08/20/14): EF: 77%, mild LVH UDS: negative ECHO: (08/03/16): normal with EF 55-60% ASA 325 mg PO daily Norvasc 10 mg PO daily Lopressor 50 mg PO BID As per Dr. Kilgore, no longer will perform stress test on this visit. May need one outpatient. Status: Acute (2) Lower extremity edema Assessment and Plan: BNP 60.1 on admission. CXR on admission showed cardiomegaly with mild venous congestion. ECHO: (08/20/14): EF: 77%, mild LVH. ECHO: (08/03/16): normal with EF 55-60% LE Dopplers negative for DVT b/l. Wound care ordered for stasis dermatitis of lower extremities. Status: Acute (3) HTN (hypertension) Assessment and Plan: Lopressor 50 mg PO BID Norvasc 10 mg PO daily Patient currently confused and refusing some PO meds. If BP elevated, will consider IV options. Status: Chronic (4) Alcohol withdrawal syndrome Assessment and Plan: Consult Psych- Dr. García- refer to rehab when medically stable Ativan 1mg IVP Q4h PRN Seizure precautions. Continue Banana bag Status: Acute (5) Agitation Assessment and Plan: Patient no longer on 2 point restrains as he is calmer and more oriented now Continue Haldol 5mg IM Q4h PRN Continue Cogentin 1mg IM Q6h PRN (6) Depression Assessment and Plan: Continue Zoloft 50mg PO Daily (7) Prophylactic Measure Assessment and Plan: Protonix 40mg PO Daily Lovenox 40mg SC Daily All medical management as per Dr. Tobias. DC Planning. Patient is to be discharged home, as per Dr. Tobias. <Anh Tobias - Last Filed: 08/10/16 13:52> Objective - Vital Signs/Intake and Output Vital Signs (last 24 hours): Temp Pulse Resp BP Pulse Ox 98.4 F 72 20 101/65 97 08/10/16 08:30 08/10/16 08:30 08/10/16 08:30 08/10/16 08:30 08/10/16 08:30 - Medications Medications: Current Medications Amlodipine Besylate (Norvasc) 10 mg PO DAILY [facility] Last Admin: 08/10/16 10:42 Dose: 10 mg Aspirin (Aspirin) 325 mg PO DAILY [facility] Last Admin: 08/10/16 10:41 Dose: 325 mg Benztropine Mesylate (Cogentin) 1 mg IM Q6H PRN PRN Reason: acute dystonia Gabapentin (Neurontin) 300 mg PO TID [facility] Last Admin: 08/10/16 13:44 Dose: 300 mg Haloperidol Lactate (Haldol) 5 mg IM Q4H PRN PRN Reason: severe agitation Lorazepam (Ativan) 1 mg IVP Q4H PRN PRN Reason: Agitation Last Admin: 08/07/16 23:00 Dose: 1 mg Metoprolol Tartrate (Lopressor) 50 mg PO BID [facility] Last Admin: 08/10/16 10:41 Dose: 50 mg Naltrexone HCl (Revia) 50 mg PO DAILY [facility] Last Admin: 08/09/16 10:02 Dose: 50 mg Pantoprazole Sodium (Protonix Ec Tab) 40 mg PO DAILY [facility] Last Admin: 08/10/16 10:41 Dose: 40 mg Sertraline HCl (Zoloft) 50 mg PO DAILY [facility] Last Admin: 08/10/16 10:42 Dose: 50 mg - Labs Labs: 08/10/16 06:12 08/10/16 06:12 PT 12.4 SECONDS (9.7-12.2) H 08/02/16 13:06 INR 1.1 08/02/16 13:06 APTT 38 SECONDS (21-34) H 08/02/16 13:06 Attending/Attestation - Attestation I have personally seen and examined this patient.: Yes I have fully participated in the care of the patient.: Yes I have reviewed all pertinent clinical information, including history, physical exam and plan: Yes Notes (Text): 08/10/16 13:52 admitted iw yocasta much better can walk much beter for discharge today
[2016-08-10 07:11] LABS: BASO # 0.1 K/uL (0.0-0.2); EOS # 0.4 K/uL (0.0-0.7); HEMATOCRIT 34.2 % (35.0-51.0); LYMPH # 1.9 K/uL (1.0-4.3); LYMPH % 35.2 % (20.0-40.0); MEAN CELL VOLUME 74.2 fL (80.0-94.0); MEAN PLATELET VOLUME 8.5 fL (7.2-11.7); MONO # 0.9 K/uL (0.0-0.8); MONO % 17.5 % (0.0-10.0); NRBC % 0.1 % (0.0-2.0); RED CELL DISTRIBUTION WIDTH 16.1 % (11.5-14.5); WHITE BLOOD COUNT 5.3 K/uL (4.8-10.8)
--- NOTE | 2016-08-10 07:37 | CP.PCM.PN ---
<Kasey Machado - Last Filed: 08/10/16 11:01> Subjective - Date & Time of Evaluation Date of Evaluation: 08/10/16 Time of Evaluation: 09:00 - Subjective Subjective: Cardiology Progress Note- Dr. Kilgore Patient seen and examined at beside this AM. Patient is sitting at side of bed in no acute stress. He denies chest pain, fevers, chills, abdominal pain. No other complaints at this time. Objective - Vital Signs/Intake and Output Vital Signs (last 24 hours): Temp Pulse Resp BP Pulse Ox 97.8 F 68 18 131/75 97 08/10/16 00:00 08/10/16 00:00 08/10/16 00:00 08/10/16 00:00 08/10/16 00:00 - Medications Medications: Current Medications Amlodipine Besylate (Norvasc) 10 mg PO DAILY [facility] Last Admin: 08/09/16 10:02 Dose: 10 mg Aspirin (Aspirin) 325 mg PO DAILY [facility] Last Admin: 08/09/16 10:02 Dose: 325 mg Benztropine Mesylate (Cogentin) 1 mg IM Q6H PRN PRN Reason: acute dystonia Gabapentin (Neurontin) 300 mg PO TID [facility] Last Admin: 08/09/16 18:06 Dose: 300 mg Haloperidol Lactate (Haldol) 5 mg IM Q4H PRN PRN Reason: severe agitation Lorazepam (Ativan) 1 mg IVP Q4H PRN PRN Reason: Agitation Last Admin: 08/07/16 23:00 Dose: 1 mg Metoprolol Tartrate (Lopressor) 50 mg PO BID [facility] Last Admin: 08/09/16 18:06 Dose: 50 mg Naltrexone HCl (Revia) 50 mg PO DAILY [facility] Last Admin: 08/09/16 10:02 Dose: 50 mg Pantoprazole Sodium (Protonix Ec Tab) 40 mg PO DAILY [facility] Last Admin: 08/09/16 10:02 Dose: 40 mg Sertraline HCl (Zoloft) 50 mg PO DAILY [facility] Last Admin: 08/09/16 10:02 Dose: 50 mg - Labs Labs: 08/10/16 06:12 08/10/16 06:12 PT 12.4 SECONDS (9.7-12.2) H 08/02/16 13:06 INR 1.1 08/02/16 13:06 APTT 38 SECONDS (21-34) H 08/02/16 13:06 - Constitutional Appears: No Acute Distress, Unkempt - Head Exam Head Exam: NORMAL INSPECTION, NORMOCEPHALIC - Eye Exam Eye Exam: EOMI, Normal appearance - ENT Exam ENT Exam: Mucous Membranes Moist - Neck Exam Neck Exam: Full ROM, Normal Inspection - Respiratory Exam Respiratory Exam: Clear to Ausculation Bilateral, NORMAL BREATHING PATTERN - Cardiovascular Exam Cardiovascular Exam: REGULAR RHYTHM, +S1, +S2 - GI/Abdominal Exam GI & Abdominal Exam: Soft. absent: Distended, Tenderness - Extremities Exam Extremities Exam: Full ROM, Normal Inspection - Neurological Exam Neurological Exam: Alert, Awake, Oriented x3 - Psychiatric Exam Psychiatric exam: Normal Affect, Normal Mood Assessment and Plan - Assessment and Plan (Free Text) Assessment: (1) Chest pain Assessment and Plan: Troponins #1: 0.170, #2: 0.0220, #3: 0.0150. CK-MB: 5.48, 4.03, 3.74 EKG: (08/03/16)Normal sinus rhythm, Q waves present in V1 and V2. Prolonged QTc. Possible septal infarct of unknown age. (07/10/16) Normal sinus rhythm, first degree AV block ECHO: (08/20/14): EF: 77%, mild LVH UDS: negative ECHO: (08/03/16): normal with EF 55-60% ASA 325 mg PO daily Norvasc 10 mg PO daily Lopressor 50 mg PO BID As per Dr. Kilgore, patient for stress test as outpatient. Stress test recommended for new Q waves found on lateral leads on EKG done on admission (compared to EKG done 07/10/16). Status: Acute (2) Lower extremity edema Assessment and Plan: BNP 60.1 on admission. CXR on admission showed cardiomegaly with mild venous congestion. ECHO: (08/20/14): EF: 77%, mild LVH. ECHO: (08/03/16): normal with EF 55-60% LE Dopplers negative for DVT b/l. Wound care ordered for stasis dermatitis of lower extremities. Status: Acute (3) HTN (hypertension) Assessment and Plan: Lopressor 50 mg PO BID Norvasc 10 mg PO daily Status: Chronic (4) Alcohol withdrawal syndrome Assessment and Plan: Patient with DT's on admission Psych on board. Management as per primary team. Seizure precautions. Status: Acute Discussed with Dr. Kilgore. Moises Machado DO- PGY 2 <Dariela Kilgore - Last Filed: 08/10/16 19:53> Objective - Vital Signs/Intake and Output Vital Signs (last 24 hours): Temp Pulse Resp BP Pulse Ox 97.7 F 65 20 137/63 97 08/10/16 15:15 08/10/16 15:15 08/10/16 15:15 08/10/16 15:15 08/10/16 15:15 - Labs Labs: 08/10/16 06:12 08/10/16 06:12 PT 12.4 SECONDS (9.7-12.2) H 08/02/16 13:06 INR 1.1 08/02/16 13:06 APTT 38 SECONDS (21-34) H 08/02/16 13:06 Attending/Attestation - Attestation I have personally seen and examined this patient.: Yes I have fully participated in the care of the patient.: Yes I have reviewed all pertinent clinical information, including history, physical exam and plan: Yes Notes (Text): 08/10/16 19:53 much better spirits follow up in clinic
[2016-08-10 08:53] VITALS: RESP 20
[2016-08-10] MEDS: Pantoprazole 40 mg EC Tab PO SCH (10:41)
[2016-08-10 15:42] VITALS: BP 137/63; PULSE 65; TEMP 97.7
--- NOTE | 2016-09-14 08:04 | CARD ---
APPROVED REPORT EKG Measurement Heart [id number] <Conclusion> Normal sinus rhythm Septal infarct, age undetermined Abnormal ECG
== END 2016-08-10 16:27 | disposition home or self-care (01) | DRG 751 ==
LOC: C.ER 12:20 → C.9E 16:44 → C.5T 17:26 → OBSVTOIN 08-04 07:56
PROVIDERS: ADMIT Internal Medicine Nephrology; ATTEND Internal Medicine Nephrology
PROC: HZ2ZZZZ Detoxification Services for Substance Abuse Treatment (ICD-10-PCS; principal; 2016-08-04)
DX: F10.231 Alcohol dependence with withdrawal delirium (principal); Z78.1 Physical restraint status; I11.9 Hypertensive heart disease without heart failure; Z59.0 Homelessness; Y90.8 Blood alcohol level of 240 mg/100 ml or more; E11.9 Type 2 diabetes mellitus without complications; F32.89 Other specified depressive episodes; I44.0 Atrioventricular block, first degree; I45.81 Long QT syndrome

== ENCOUNTER 2016-08-24 18:27 | Observation (INO) | payer OTHER ==
[2016-08-24 19:05] VITALS: O2SAT 98
--- NOTE | 2016-08-24 19:39 | C.PDOC ---
History Of Present Illness A 56 y/o male brought in by EMS for acute ETOH intoxication. Patient denies any physical complaints at this time. Time Seen by Provider: 08/24/16 19:39 Chief Complaint (Nursing): Substance Abuse History Per: Patient History/Exam Limitations: intoxication Onset/Duration Of Symptoms: Hrs Current Symptoms Are (Timing): Still Present Suicide/Self Injury Attempted (Context): None Modifying Factor(s): None Pain Scale Rating Of: 0 Associated Symptoms: denies: Depression, Suicidal Thoughts, Suicidal Plan Involuntary Hold By: None Recent travel outside of the [place]: No Additional History Per: Patient Past Medical History Reviewed: Historical Data, Nursing Documentation, Vital Signs Vital Signs: Last Vital Signs Temp 98 F 08/24/16 22:42 Pulse 69 08/24/16 22:42 Resp 20 08/24/16 22:42 BP 131/69 08/24/16 22:42 Pulse Ox 98 08/25/16 02:37 - Medical History PMH: Diabetes, Graves' Disease, HTN, Hyperthyroidism, Seizures (alcohol related) Denies: Chronic Kidney Disease - [facility] [employer] Procedures DETOXIFICATION SERVICES FOR SUBSTANCE ABUSE TREATMENT (08/04/16) INJECT/INFUSE NEC (03/22/13) Family History: States: Unknown Family Hx - Social History Hx Tobacco Use: No Hx Alcohol Use: Yes ("pint of vodka daily") Hx Substance Use: No - Immunization History Hx Tetanus Toxoid Vaccination: No Hx Influenza Vaccination: No Hx Pneumococcal Vaccination: No Review Of Systems Constitutional: Positive for: Other (ETOH intoxication). Negative for: Fever, Chills Gastrointestinal: Negative for: Nausea, Vomiting, Abdominal Pain, Diarrhea Psych: Negative for: Depression, Suicidal ideation, Other (Homicidal ideation) Physical Exam - Physical Exam Appears: Non-toxic, No Acute Distress, Other (ETOH intoxication, (+) AOB) Skin: Warm, Dry Head: Normacephalic Eye(s): bilateral: Normal Inspection Oral Mucosa: Moist Neck: Trachea Midline, Supple Chest: Symmetrical Cardiovascular: Rhythm Regular, No Murmur Respiratory: No Rales, No Rhonchi, No Wheezing Gastrointestinal/Abdominal: Soft, No Tenderness Back: Normal Inspection Extremity: Normal ROM Extremity: Bilateral: Atraumatic Neurological/Psych: Oriented x3 (Awake and alert) Gait: Unsteady ED Course And Treatment O2 Sat by Pulse Oximetry: 98 (Ra) Pulse Ox Interpretation: Normal Reevaluation Time: 05:15 Reassessment Condition: Improved ED OBSERVATION Discharge: Yes Date of observation admission: 08/24/16 Time of observation admission: 19:41 - Observation admission statement Patient is being placed in observation because:: acute alcohol intoxication - Goals of Observation Goals of observation are:: sobriety - Progress Note Progress Note: 08/24/16 19:41 vitals stable\\ , 08/24/16 223:46 no complaints Disposition Counseled Patient/Family Regarding: Studies Performed, Diagnosis - Disposition Disposition: HOME/ ROUTINE Disposition Time: 19:39 Condition: FAIR - Clinical Impression Clinical Impression: Alcohol dependence, Alcohol intoxication - Scribe Statement The provider has reviewed the documentation as recorded by the Scribjanis gomez All medical record entries made by the Anastacioibjanis were at my direction and personally dictated by me. I have reviewed the chart and agree that the record accurately reflects my personal performance of the history, physical exam, medical decision making, and the department course for this patient. I have also personally directed, reviewed, and agree with the discharge instructions and disposition.
[2016-08-24 22:42] VITALS: BP 131/69; RESP 20
[2016-08-25 05:32] VITALS: PULSE 82; TEMP 97.1
== END 2016-08-25 05:16 | disposition home or self-care (01) ==
LOC: C.ER 18:27 → C.9OBSV 19:39
PROVIDERS: ADMIT Emergency Medicine; ATTEND Emergency Medicine
DX: F10.220 Alcohol dependence with intoxication, uncomplicated (principal); Y90.9 Presence of alcohol in blood, level not specified; I10 Essential (primary) hypertension; E05.00 Thyrotoxicosis with diffuse goiter without thyrotoxic crisis or storm
CPT/HCPCS: 82948; G0378

== ENCOUNTER 2016-10-12 12:48 | Observation (INO) | payer OTHER, SELFPAY ==
[2016-10-12 13:00] VITALS: BMI 27.3
--- NOTE | 2016-10-12 13:38 | C.PDOC ---
History Of Present Illness Patient is a 56 y/o male that presents to the emergency department for evaluation of abdominal pain, and chest pain. ptw ell known to er. pt also repots etoh consumption today. at bedside, upon inital assessment, pt sleeping in nad. noted recent admission, cards recommends outpt stress. Otherwise, denies any n/v/d, shortness of breath, or fever. Time Seen by Provider: 10/12/16 12:57 Chief Complaint (Nursing): Chest Pain History Per: Patient History/Exam Limitations: no limitations Onset/Duration Of Symptoms: Days Current Symptoms Are (Timing): Still Present Quality: "Pain" Associated Symptoms: denies: Nausea, Dyspnea, Diaphoresis, Syncope Modifying Factors: None Exacerbating Factors: None Alleviating Factors: None Recent travel outside of the [place]: No Additional History Per: Patient Past Medical History Reviewed: Historical Data, Nursing Documentation, Vital Signs Vital Signs: Last Vital Signs Temp 98.3 F 10/12/16 16:54 Pulse 82 10/12/16 16:54 Resp 20 10/12/16 16:54 BP 132/82 10/12/16 16:54 Pulse Ox 97 10/12/16 16:54 - Medical History PMH: Diabetes, Graves' Disease, HTN, Hyperthyroidism, Seizures (alcohol related) Denies: Chronic Kidney Disease - [facility] Procedures DETOXIFICATION SERVICES FOR SUBSTANCE ABUSE TREATMENT (08/04/16) INJECT/INFUSE NEC (03/22/13) Family History: States: Unknown Family Hx - Social History Hx Tobacco Use: No Hx Alcohol Use: Yes ("pint of vodka daily") Hx Substance Use: No - Immunization History Hx Tetanus Toxoid Vaccination: No Hx Influenza Vaccination: No Hx Pneumococcal Vaccination: No Review Of Systems Except As Marked, All Systems Reviewed And Found Negative. Constitutional: Negative for: Fever, Chills Cardiovascular: Positive for: Chest Pain. Negative for: Palpitations, Edema, Light Headedness Respiratory: Negative for: Cough, Shortness of Breath, Sputum Gastrointestinal: Positive for: Abdominal Pain. Negative for: Nausea, Vomiting , Diarrhea, Constipation Genitourinary: Negative for: Dysuria, Frequency, Hematuria Musculoskeletal: Negative for: Back Pain Neurological: Negative for: Weakness, Numbness, Headache, Dizziness Physical Exam - Physical Exam Appears: Non-toxic, No Acute Distress Skin: Normal Color, Warm, Dry Head: Atraumatic, Normacephalic Eye(s): bilateral: Normal Inspection Neck: Normal ROM, Supple Chest: Symmetrical Cardiovascular: Rhythm Regular, No Murmur Respiratory: Normal Breath Sounds, No Rales, No Rhonchi, No Wheezing Gastrointestinal/Abdominal: Soft, No Tenderness, No Guarding, No Rebound Extremity: Normal ROM Neurological/Psych: Oriented x3, Normal Speech, Normal Cognition ED Course And Treatment - Laboratory Results Result Diagrams: 10/12/16 13:39 10/12/16 13:39 O2 Sat by Pulse Oximetry: 93 Progress Note: Blood work, urinalysis, EKG, CXR ordered and reviewed. Medical Decision Making Medical Decision Making: cp r/o acs- labs imaging pendign 200: pt sleeping in nad. lipase minimally elevated (<3x upper limit), baseline for pt. abd soft. 450: pt sleeping throughout ed stay. now awake, alert, urinated w/o difficulty ambulated to rest room steady gait. stabelf or d/c Disposition - Disposition Disposition: HOME/ ROUTINE Disposition Time: 04:00 Condition: STABLE - Clinical Impression Clinical Impression: Chest pain - Scribe Statement The provider has reviewed the documentation as recorded by the Scribe Merlene Tobias All medical record entries made by the Scribe were at my direction and personally dictated by me. I have reviewed the chart and agree that the record accurately reflects my personal performance of the history, physical exam, medical decision making, and the department course for this patient. I have also personally directed, reviewed, and agree with the discharge instructions and disposition.
[2016-10-12 13:46] LABS: EOS # 0.3 K/uL (0.0-0.7); EOS % 7.4 % (0.0-4.0); HEMOGLOBIN 10.1 g/dL (12.0-18.0); LYMPH # 1.5 K/uL (1.0-4.3); LYMPH % 42.3 % (20.0-40.0); MEAN CELL VOLUME 72.6 fL (80.0-94.0); MEAN CORPUSCULAR HGB CONC 31.7 g/dL (33.0-37.0); MEAN PLATELET VOLUME 8.3 fL (7.2-11.7); MONO # 0.5 K/uL (0.0-0.8); NEUT # 1.2 K/uL (1.8-7.0); NEUT % 34.3 % (50.0-75.0); NRBC % 0.7 % (0.0-2.0); RBC 4.38 Mil/uL (4.40-5.90); RED CELL DISTRIBUTION WIDTH 17.7 % (11.5-14.5); WHITE BLOOD COUNT 3.4 K/uL (4.8-10.8)
[2016-10-12 13:50] LABS: INR 1.1
--- NOTE | 2016-10-12 13:50 | RAD ---
HISTORY: chest pain COMPARISON: Chest x-ray performed 08/02/16 TECHNIQUE: Chest, one view. FINDINGS: Examination limited by habitus and hypoinflation. The patient's chin obscures evaluation of the lung apices. LUNGS: Bibasilar atelectasis. Nodular density is again seen projecting over the lateral aspect of the right upper lung zone likely represents end of the rib. Please note that chest x-ray has limited sensitivity for the detection of pulmonary masses. PLEURA: No significant pleural effusion identified. No definite pneumothorax . CARDIOVASCULAR: Heart size appears within normal limits. OSSEOUS STRUCTURES: Degenerative changes. VISUALIZED UPPER ABDOMEN: Unremarkable. OTHER FINDINGS: None. IMPRESSION: Hypoinflation. Bibasilar atelectasis. Nodular density is again seen projecting over the lateral aspect of the right upper lung zone likely represents end of the rib.
[2016-10-12 13:54] LABS: ALBUMIN 3.8 g/dL (3.5-5.0)
[2016-10-12 13:57] LABS: ALB/GLOB RATIO 0.9 (1.0-2.1); AST/SGOT 161 U/L (17-59); GFR AFRICAN-AMERICAN > 60; GFR NON-AFRICAN AMERICAN > 60
[2016-10-12 13:58] LABS: ALT/SGPT 68 U/L (21-72); BLOOD UREA NITROGEN 9 mg/dL (9-20); CALCIUM 7.6 mg/dl (8.6-10.4); LIPASE 544 U/L (23-300)
[2016-10-12 14:07] LABS: B-TYPE NATRIURETIC PEPTIDE 19.6 pg/mL (0-900)
[2016-10-12] MEDS ORDERED: Potassium Chloride 20 mEq ER Tab PO STA (14:17)
[2016-10-12] MEDS ORDERED: Potassium Chloride 20 mEq ER Tab PO ONE (14:25)
[2016-10-12 16:54] VITALS: BP 132/82; PULSE 82; RESP 20; TEMP 98.3
[2016-10-12 16:56] LABS: SQUAMOUS EPITHIAL 2 /hpf (0-5); URINE BACTERIA RARE (<OCC); URINE BILIRUBIN NEGATIVE (NEGATIVE); URINE BLOOD 1+ (NEGATIVE); URINE CLARITY Clear (Clear); URINE COLOR Yellow (YELLOW); URINE GLUCOSE (UA) 1+ mg/dL (Normal); URINE LEUKOCYTE ESTERASE NEG Leu/uL (Negative); URINE NITRATE NEGATIVE (NEGATIVE); URINE PROTEIN NEGATIVE (NEGATIVE); URINE UROBILINOGEN NORMAL mg/dL (0.2-1.0)
[2016-10-12 19:33] VITALS: O2SAT 93
--- NOTE | 2016-10-13 12:15 | CARD ---
APPROVED REPORT EKG Measurement Heart [id number] <Conclusion> Sinus rhythm with 1st degree AV block Otherwise normal ECG
--- NOTE | 2016-10-13 12:16 | CARD ---
APPROVED REPORT EKG Measurement Heart [id number] <Conclusion> Normal sinus rhythm Normal ECG
== END 2016-10-12 16:48 | disposition home or self-care (01) ==
LOC: C.ER 12:48 → C.9OBSV 14:13
PROVIDERS: ADMIT Student in an Organized Health Care Education/Training Program; ATTEND Student in an Organized Health Care Education/Training Program
DX: R07.9 Chest pain, unspecified (principal); I10 Essential (primary) hypertension; E11.9 Type 2 diabetes mellitus without complications
CPT/HCPCS: 71010; 80053; 81001; 83690; 83880; 84484; 85025; 85610; 85730; G0378

== ENCOUNTER 2016-11-05 14:49 | Observation (INO) | payer SELFPAY ==
[2016-11-05 14:49] VITALS: BMI 27.3
--- NOTE | 2016-11-05 15:44 | C.PDOC ---
History Of Present Illness 56 year old male presents to the emergency department admitting to drinking alcohol just prior to arrival. Patient denies physical complaints, suicidal, or homicidal ideations. Chief Complaint (Nursing): Substance Abuse History Per: Patient History/Exam Limitations: no limitations Suicide/Self Injury Attempted (Context): None Severity: None Pain Scale Rating Of: 0 Associated Symptoms: denies: Suicidal Thoughts, Suicidal Plan Involuntary Hold By: None Recent travel outside of the [place]: No Past Medical History Reviewed: Historical Data, Nursing Documentation, Vital Signs Vital Signs: Last Vital Signs Temp 98.4 F 11/05/16 22:03 Pulse 78 11/06/16 00:09 Resp 18 11/06/16 00:09 BP 139/71 11/06/16 00:09 Pulse Ox 99 11/06/16 00:09 - Medical History PMH: Diabetes, Graves' Disease, HTN, Hyperthyroidism, Seizures (alcohol related) - [facility] Procedures DETOXIFICATION SERVICES FOR SUBSTANCE ABUSE TREATMENT (08/04/16) INJECT/INFUSE NEC (03/22/13) Family History: States: Unknown Family Hx - Social History Hx Tobacco Use: No Hx Alcohol Use: Yes ("pint of vodka daily") Hx Substance Use: No - Immunization History Hx Tetanus Toxoid Vaccination: No Hx Influenza Vaccination: No Hx Pneumococcal Vaccination: No Review Of Systems Constitutional: Negative for: Fever, Chills Cardiovascular: Negative for: Chest Pain, Palpitations Respiratory: Negative for: Shortness of Breath Gastrointestinal: Negative for: Nausea, Vomiting, Abdominal Pain, Diarrhea Physical Exam - Physical Exam Appears: Non-toxic, No Acute Distress, Other (EtOH) Skin: Warm, Dry Head: Atraumatic Eye(s): bilateral: Normal Inspection, EOMI Oral Mucosa: Moist Neck: Supple Chest: Symmetrical, No Deformity Cardiovascular: Rhythm Regular Respiratory: Normal Breath Sounds, No Rhonchi, No Wheezing Gastrointestinal/Abdominal: Soft, No Tenderness, No Distention, No Guarding, No Rebound Neurological/Psych: Oriented x3 ED Course And Treatment O2 Sat by Pulse Oximetry: 96 (room air ) ED OBSERVATION Discharge: Yes Time of observation admission: 15:00 - Observation admission statement Patient is being placed in observation because:: Patient is intoxicated. - Goals of Observation Goals of observation are:: sobriety. Disposition - Disposition Disposition: HOME/ ROUTINE Disposition Time: 23:00 Condition: IMPROVED - Clinical Impression Clinical Impression: Alcohol abuse - Scribe Statement The provider has reviewed the documentation as recorded by the Scribe Virginia Richmond All medical record entries made by the Anastacioibe were at my direction and personally dictated by me. I have reviewed the chart and agree that the record accurately reflects my personal performance of the history, physical exam, medical decision making, and the department course for this patient. I have also personally directed, reviewed, and agree with the discharge instructions and disposition.
[2016-11-05 22:03] VITALS: TEMP 98.4
[2016-11-06 00:10] VITALS: BP 139/71; PULSE 78; RESP 18
[2016-11-06 00:39] VITALS: O2SAT 96
== END 2016-11-06 00:02 | disposition home or self-care (01) ==
LOC: C.ER 14:49 → C.9OBSV 15:34
PROVIDERS: ADMIT Emergency Medicine; ATTEND Emergency Medicine
DX: F10.10 Alcohol abuse, uncomplicated (principal); I10 Essential (primary) hypertension
CPT/HCPCS: 82948; 99284; G0378

== ENCOUNTER 2016-11-19 23:23 | Observation (INO) | payer SELFPAY ==
[2016-11-19 23:23] VITALS: BMI 27.3
[2016-11-19 23:33] VITALS: TEMP 97.6; O2SAT 98
--- NOTE | 2016-11-19 23:37 | C.PDOC ---
Time Seen by Provider: 11/19/16 23:36 Chief Complaint (Nursing): Substance Abuse Past Medical History Vital Signs: Last Vital Signs Temp 97.6 F 11/19/16 23:30 Pulse 67 11/19/16 23:30 Resp 16 11/19/16 23:30 BP 143/90 11/19/16 23:30 Pulse Ox 98 11/19/16 23:30 - Medical History PMH: Diabetes, Graves' Disease, HTN, Hyperthyroidism, Seizures (alcohol related) Denies: Chronic Kidney Disease - [facility] Procedures DETOXIFICATION SERVICES FOR SUBSTANCE ABUSE TREATMENT (08/04/16) INJECT/INFUSE NEC (03/22/13) Family History: States: Unknown Family Hx - Social History Hx Tobacco Use: No Hx Alcohol Use: Yes ("pint of vodka daily") Hx Substance Use: No - Immunization History Hx Tetanus Toxoid Vaccination: No Hx Influenza Vaccination: No Hx Pneumococcal Vaccination: No ED Course And Treatment O2 Sat by Pulse Oximetry: 98 Disposition Counseled Patient/Family Regarding: Studies Performed, Diagnosis, Need For Followup - Disposition Referrals: Anh Tobias MD [Staff Provider] - Disposition Time: 23:36 Condition: FAIR Instructions: Alcohol Intoxication (DC) Forms: [facility] (Pashto) - Clinical Impression Clinical Impression: Alcohol intoxication, Alcohol dependence
--- NOTE | 2016-11-19 23:40 | C.PDOC ---
History Of Present Illness 56 year old male who presents to the ER via EMS after he was found intoxicated in [facility]. Patient is complaint of a contusion to the face; denies any other complaints. Time Seen by Provider: 11/19/16 23:36 Chief Complaint (Nursing): Substance Abuse History Per: Patient History/Exam Limitations: no limitations Onset/Duration Of Symptoms: Hrs Current Symptoms Are (Timing): Still Present Suicide/Self Injury Attempted (Context): None Modifying Factor(s): Alcohol Associated Symptoms: denies: Depression, Suicidal Thoughts, Suicidal Plan Involuntary Hold By: None Recent travel outside of the [place]: No Past Medical History Reviewed: Historical Data, Nursing Documentation, Vital Signs Vital Signs: Last Vital Signs Temp 97.6 F 11/19/16 23:30 Pulse 80 11/19/16 23:50 Resp 14 11/19/16 23:50 BP 138/84 11/19/16 23:50 Pulse Ox 98 11/19/16 23:50 - Medical History PMH: Diabetes, Graves' Disease, HTN, Hyperthyroidism, Seizures (alcohol related) Surgical History: No Surg Hx - [facility] Procedures DETOXIFICATION SERVICES FOR SUBSTANCE ABUSE TREATMENT (08/04/16) INJECT/INFUSE NEC (03/22/13) Family History: States: Unknown Family Hx - Social History Hx Tobacco Use: No Hx Alcohol Use: Yes ("pint of vodka daily") Hx Substance Use: No - Immunization History Hx Tetanus Toxoid Vaccination: No Hx Influenza Vaccination: No Hx Pneumococcal Vaccination: No Review Of Systems Constitutional: Negative for: Fever, Chills Gastrointestinal: Negative for: Nausea, Vomiting, Diarrhea Physical Exam - Physical Exam Appears: Non-toxic, No Acute Distress, Other (ETOH on breath) Skin: Normal Color, Warm, Dry Head: Atraumatic, Normacephalic, Other (No contusion on face) Oral Mucosa: Moist Chest: Symmetrical, No Tenderness Cardiovascular: Rhythm Regular, No Murmur Respiratory: Normal Breath Sounds, No Rales, No Rhonchi, No Wheezing Gastrointestinal/Abdominal: Soft, No Tenderness Neurological/Psych: Oriented x3, Normal Speech, Normal Cognition Gait: Steady ED Course And Treatment O2 Sat by Pulse Oximetry: 98 Medical Decision Making Medical Decision Making: many prior eval for intox, same tonight BIBA c/o mild facial contusion, but no injuries and normal exam/behavior- known to this MD suspect malingering. Stable gait. OK for d/c. Disposition Doctor Will See Patient In The: Office Counseled Patient/Family Regarding: Studies Performed, Diagnosis - Disposition Disposition: HOME/ ROUTINE Disposition Time: 23:40 Condition: GOOD - Clinical Impression Clinical Impression: Alcohol intoxication, Alcohol dependence - Scribe Statement The provider has reviewed the documentation as recorded by the Scribjanis Child All medical record entries made by the Anastacioibjanis were at my direction and personally dictated by me. I have reviewed the chart and agree that the record accurately reflects my personal performance of the history, physical exam, medical decision making, and the department course for this patient. I have also personally directed, reviewed, and agree with the discharge instructions and disposition.
[2016-11-19 23:52] VITALS: BP 138/84; PULSE 80; RESP 14
== END 2016-11-19 23:44 | disposition home or self-care (01) ==
LOC: C.ER 23:23 → C.9OBSV 23:37 → C.ER 23:51
PROVIDERS: ADMIT Emergency Medicine; ATTEND Emergency Medicine
DX: F10.129 Alcohol abuse with intoxication, unspecified (principal); I10 Essential (primary) hypertension; Y90.9 Presence of alcohol in blood, level not specified; S00.83XA Contusion of other part of head, initial encounter; W18.30XA Fall on same level, unspecified, initial encounter
CPT/HCPCS: 99283; G0378

== ENCOUNTER 2016-11-23 22:40 | Observation (INO) | payer OTHER ==
[2016-11-23 22:40] VITALS: BMI 27.3
--- NOTE | 2016-11-23 22:51 | C.PDOC ---
History Of Present Illness 56 y/o male presents for acute alcohol intoxication. Patient admits to drinking alcohol [employer]. Denies suicidal ideation, homicidal ideation, or somatic complaints. Time Seen by Provider: 11/23/16 22:45 Chief Complaint (Nursing): Substance Abuse History Per: Patient History/Exam Limitations: no limitations Onset/Duration Of Symptoms: Hrs Current Symptoms Are (Timing): Still Present Suicide/Self Injury Attempted (Context): None Modifying Factor(s): Alcohol Severity: Mild Associated Symptoms: denies: Suicidal Thoughts, Suicidal Plan Involuntary Hold By: None Recent travel outside of the [place]: No Additional History Per: Patient Past Medical History Reviewed: Historical Data, Nursing Documentation, Vital Signs Vital Signs: Last Vital Signs Temp 97.9 F 11/24/16 05:32 Pulse 89 11/24/16 05:32 Resp 16 11/24/16 05:32 BP 135/90 11/24/16 05:32 Pulse Ox 96 11/24/16 05:32 - Medical History PMH: Diabetes, Graves' Disease, HTN, Hyperthyroidism, Seizures (alcohol related) Denies: Chronic Kidney Disease - [facility] Procedures DETOXIFICATION SERVICES FOR SUBSTANCE ABUSE TREATMENT (08/04/16) INJECT/INFUSE NEC (03/22/13) Family History: States: Unknown Family Hx - Social History Hx Tobacco Use: No Hx Alcohol Use: Yes ("pint of vodka daily") Hx Substance Use: No - Immunization History Hx Tetanus Toxoid Vaccination: No Hx Influenza Vaccination: No Hx Pneumococcal Vaccination: No Review Of Systems Constitutional: Positive for: Other (Acute alcohol intoxication). Negative for : Fever, Chills Cardiovascular: Negative for: Chest Pain Respiratory: Negative for: Cough, Shortness of Breath Gastrointestinal: Negative for: Vomiting, Abdominal Pain, Diarrhea Genitourinary: Negative for: Dysuria Skin: Negative for: Rash Psych: Negative for: Suicidal ideation, Other (Homicidal ideation) Physical Exam - Physical Exam Additional Physical Exam Comments: Constitutional: No acute distress. Acute alcohol intoxication. (+) AOB. No signs of trauma. Head: Normocephalic. Atraumatic. Eyes: PERRL. ENT: Moist mucous membranes. Neck: Supple. Cardiovascular: Regular rate. Radial pulse 2+ bilaterally. Chest: No tenderness. Respiratory: Clear to auscultation bilaterally. GI: Soft. Nontender. Nondistended. Back: No CVA tenderness. Musculoskeletal: No tenderness or swelling of extremities. Skin: No rash. Neurologic: Alert and Awake, no focal deficit. ED Course And Treatment O2 Sat by Pulse Oximetry: 97 (RA) Pulse Ox Interpretation: Normal Medical Decision Making Medical Decision Making: Impression: Patient here for acute alcohol intoxication. Admits to drinking alcohol [employer]. Plans: ED Obs Patient pending for sobriety. ED OBSERVATION Discharge: Yes Date of observation admission: 11/23/16 Time of observation admission: 22:52 - Observation admission statement Patient is being placed in observation because:: Acute alcohol intoxication - Goals of Observation Goals of observation are:: Sobriety Disposition - Disposition Disposition: HOME/ ROUTINE Disposition Time: 22:52 Condition: STABLE - Clinical Impression Clinical Impression: Alcohol abuse with intoxication - Scribe Statement The provider has reviewed the documentation as recorded by the Scribjanis gomez All medical record entries made by the Anastacioibe were at my direction and personally dictated by me. I have reviewed the chart and agree that the record accurately reflects my personal performance of the history, physical exam, medical decision making, and the department course for this patient. I have also personally directed, reviewed, and agree with the discharge instructions and disposition.
[2016-11-24 05:33] VITALS: BP 135/90; PULSE 89; RESP 16; TEMP 97.9
[2016-11-24 06:08] VITALS: O2SAT 97
== END 2016-11-24 06:08 | disposition home or self-care (01) ==
LOC: C.ER 22:40 → C.9OBSV 22:48
PROVIDERS: ADMIT Student in an Organized Health Care Education/Training Program; ATTEND Student in an Organized Health Care Education/Training Program
DX: F10.120 Alcohol abuse with intoxication, uncomplicated (principal); E11.9 Type 2 diabetes mellitus without complications; I10 Essential (primary) hypertension
CPT/HCPCS: 99283; G0378

== ENCOUNTER 2016-12-05 12:16 | Observation (INO) | payer SELFPAY ==
[2016-12-05 12:16] VITALS: BMI 27.3
--- NOTE | 2016-12-05 12:48 | C.PDOC ---
History Of Present Illness Patient is a 56 y/o male who presents to the ED by ambulance for ETOH intoxication and fall. Patient admits to drinking alcohol today and reports losing balance and falling forward; denies LOC. Denies any other complaints at this time. - HPI Time Seen by Provider: 12/05/16 12:26 Chief Complaint (Nursing): Trauma History Per: Patient History/Exam Limitations: no limitations Onset/Duration Of Symptoms: Hrs (drinking and fall occured today. ) Location Of Injury: Right: Hand, Left: Hand, Anterior: Face (bridge of nose and chin) Recent travel outside of the [place]: No Past Medical History Reviewed: Historical Data, Nursing Documentation, Vital Signs Vital Signs: Last Vital Signs Temp 98.7 F 12/05/16 16:21 Pulse 104 H 12/05/16 16:21 Resp 20 12/05/16 16:21 BP 133/94 H 12/05/16 16:21 Pulse Ox 97 12/05/16 16:21 - Medical History PMH: Diabetes, Graves' Disease, HTN, Hyperthyroidism, Seizures (alcohol related) Denies: Chronic Kidney Disease Surgical History: No Surg Hx - [facility] Procedures DETOXIFICATION SERVICES FOR SUBSTANCE ABUSE TREATMENT (08/04/16) INJECT/INFUSE NEC (03/22/13) Family History: States: Unknown Family Hx - Social History Hx Tobacco Use: No Hx Alcohol Use: Yes ("pint of vodka daily") Hx Substance Use: No - Immunization History Hx Tetanus Toxoid Vaccination: No Hx Influenza Vaccination: No Hx Pneumococcal Vaccination: No Review Of Systems Constitutional: Negative for: Fever, Chills Cardiovascular: Negative for: Chest Pain, Palpitations Respiratory: Negative for: Shortness of Breath Gastrointestinal: Negative for: Nausea, Vomiting, Diarrhea Physical Exam - Physical Exam Appears: Well, Non-toxic, Other (appears intoxicated.) Skin: Normal Color, Warm, Dry Head: Atraumatic, Normacephalic Oral Mucosa: Moist Chest: No Symmetrical Cardiovascular: Rhythm Regular, No Murmur Respiratory: Normal Breath Sounds, No Rales, No Rhonchi, No Wheezing Gastrointestinal/Abdominal: Soft, No Tenderness Extremity: Normal ROM (x4) Neurological/Psych: Oriented x3, Normal Speech, Normal Cognition ED Course And Treatment O2 Sat by Pulse Oximetry: 100 (room air) Pulse Ox Interpretation: Normal Medical Decision Making Medical Decision Making: Plan: XR Hands, CT head, CT cervical spine, and CT maxillofacial ordered; Adacel administered. CT Head Impression: No intracranial hemorrhage. Atrophy greater than expected for patient age. High left frontal scalp laceration. Chronic paranasal sinusitis peer. CT Cervical Spine Impression: No evidence of fracture or dislocation. Possible muscular spasm. Otherwise unremarkable. CT Maxillofacial Impression: No acute fracture. Chronic paranasal sinusitis. Incidentally noted anterior translation of the mandibular condyles relative to the temporomandibular fossa bilaterally with closes mouth. Uncertain significance. Disposition - Disposition Disposition: HOME/ ROUTINE Disposition Time: 04:00 Condition: STABLE - Clinical Impression Clinical Impression: Head injury, acute, Alcohol abuse - Scribe Statement The provider has reviewed the documentation as recorded by the Scribe Elodia Winkler All medical record entries made by the Anastacioibe were at my direction and personally dictated by me. I have reviewed the chart and agree that the record accurately reflects my personal performance of the history, physical exam, medical decision making, and the department course for this patient. I have also personally directed, reviewed, and agree with the discharge instructions and disposition.
[2016-12-05] MEDS ORDERED: Bacitracin 500 Units/gm Oint Foilpak UD ONE (13:01)
[2016-12-05] MEDS ORDERED: Bacitracin Ointment 30 GM TUBE TOP ONE (13:03)
--- NOTE | 2016-12-05 14:59 | CT ---
PROCEDURE: CT HEAD WITHOUT CONTRAST. HISTORY: trauma COMPARISON: 07/17/2015 TECHNIQUE: Axial computed tomography images were obtained through the head/brain without intravenous contrast. Radiation dose: Total exam DLP = 92.06 mGy-cm. This CT exam was performed using one or more of the following dose reduction techniques: Automated exposure control, adjustment of the mA and/or kV according to patient size, and/or use of iterative reconstruction technique. FINDINGS: HEMORRHAGE: No intracranial hemorrhage. BRAIN: No mass effect or edema. Moderate atrophy greater than expected for patient age. No evidence acute infarct. VENTRICLES: Unremarkable. No hydrocephalus. CALVARIUM: No calvarial fracture. High left frontal scalp laceration. PARANASAL SINUSES: Chronic ethmoid and sphenoid sinusitis. MASTOID AIR CELLS: Unremarkable as visualized. No inflammatory changes. OTHER FINDINGS: None. IMPRESSION: No intracranial hemorrhage. Atrophy greater than expected for patient age. High left frontal scalp laceration. Chronic paranasal sinusitis peer
--- NOTE | 2016-12-05 15:03 | CT ---
PROCEDURE: CT Cervical Spine without contrast HISTORY: Trauma COMPARISON: None available. TECHNIQUE: Axial computed tomography images were obtained of the cervical spine without the use of intravenous contrast. Coronal and sagittal reformatted images were created and reviewed. Radiation dose: Total exam DLP = 575.30 mGy-cm. This CT exam was performed using one or more of the following dose reduction techniques: Automated exposure control, adjustment of the mA and/or kV according to patient size, and/or use of iterative reconstruction technique. FINDINGS: VERTEBRAE: No fracture. Normal alignment. No destructive bony lesion. Straightening of normal lordotic curvature indicates possible muscular spasm. DISCS/SPINAL CANAL/NEURAL FORAMINA: No significant central canal or neural foraminal stenosis. Discs heights are grossly preserved. PARASPINAL SOFT TISSUES: Unremarkable. OTHER FINDINGS: None. IMPRESSION: No evidence of fracture or dislocation. Possible muscular spasm. Otherwise unremarkable.
--- NOTE | 2016-12-05 15:14 | CT ---
PROCEDURE: CT MAXILLOFACIAL BONES WITHOUT CONTRAST HISTORY: trauma COMPARISON: None TECHNIQUE: Contiguous axial CT images of the maxillofacial bones were obtained. Coronal and sagittal reformats were generated. Radiation dose: Total exam DLP = 793.96 mGy-cm. This CT exam was performed using one or more of the following dose reduction techniques: Automated exposure control, adjustment of the mA and/or kV according to patient size, and/or use of iterative reconstruction technique. FINDINGS: NASAL BONES: No acute fracture. ORBITS: Unremarkable. PARANASAL SINUSES/ MASTOIDS: Chronic ethmoid, sphenoid and bilateral maxillary sinusitis. Retention cyst or polyp inferior maxillary antrum bilaterally. MAXILLA: Unremarkable. MANDIBLE/ TEMPOROMANDIBULAR JOINTS: There is anterior translation of the mandibular condyle relative to the temporomandibular fossa bilaterally. Mild appears closed at the time of this examination and the significance of this is uncertain. SKULL BASE: Unremarkable. TEMPORAL BONES: Middle ears and mastoid grossly unremarkable. OTHER FINDINGS: None. IMPRESSION: No acute fracture. Chronic paranasal sinusitis. Incidentally noted anterior translation of the mandibular condyles relative to the temporomandibular fossa bilaterally with closes mouth. Uncertain significance.
[2016-12-05 16:22] VITALS: BP 133/94; PULSE 104; RESP 20; TEMP 98.7
--- NOTE | 2016-12-05 17:54 | RAD ---
PROCEDURE: Bilateral hand radiographs. HISTORY: trauma COMPARISON: None. FINDINGS: BONES: Right Hand: Normal. No osteoarthritic changes. Left Hand: Normal. No osteoarthritic changes. JOINTS: Right Hand: Normal. Left Hand: Normal. SOFT TISSUES: Right Hand: Normal. Left Hand: Normal. OTHER FINDINGS: None. IMPRESSION: Normal radiographs of the hands.
[2016-12-05 19:27] VITALS: O2SAT 100
== END 2016-12-05 16:13 | disposition home or self-care (01) ==
LOC: C.ER 12:16 → C.9OBSV 15:19
PROVIDERS: ADMIT Student in an Organized Health Care Education/Training Program; ATTEND Student in an Organized Health Care Education/Training Program
DX: S09.90XA Unspecified injury of head, initial encounter (principal); F10.10 Alcohol abuse, uncomplicated; E11.9 Type 2 diabetes mellitus without complications; I10 Essential (primary) hypertension; W19.XXXA Unspecified fall, initial encounter
CPT/HCPCS: 70450; 70486; 72125; 73130; 82948; 90471; 90715; 99285; G0378

== ENCOUNTER 2016-12-06 20:28 | Observation (INO) | payer OTHER ==
[2016-12-06 20:28] VITALS: BMI 27.3
--- NOTE | 2016-12-06 20:44 | C.PDOC ---
History Of Present Illness 56 year old male who presents to the ER intoxicated. Patient states he may have fell but cannot state when; denies physical complaints at this time. - HPI Time Seen by Provider: 12/06/16 20:38 Chief Complaint (Nursing): Trauma History Per: Patient History/Exam Limitations: no limitations Onset/Duration Of Symptoms: Hrs Recent travel outside of the [place]: No - Fall Fall:Prior To Injury: Other (Not sure) Past Medical History Reviewed: Historical Data, Nursing Documentation, Vital Signs Vital Signs: Last Vital Signs Temp 98.5 F 12/07/16 04:26 Pulse 88 12/07/16 04:26 Resp 18 12/07/16 04:26 BP 116/66 12/07/16 04:26 Pulse Ox 100 12/07/16 04:26 - Medical History PMH: Diabetes, Graves' Disease, HTN, Hyperthyroidism, Seizures (alcohol related) Surgical History: No Surg Hx - [facility] Procedures DETOXIFICATION SERVICES FOR SUBSTANCE ABUSE TREATMENT (08/04/16) INJECT/INFUSE NEC (03/22/13) Family History: States: Unknown Family Hx - Social History Hx Tobacco Use: No Hx Alcohol Use: Yes ("pint of vodka daily") Hx Substance Use: No - Immunization History Hx Tetanus Toxoid Vaccination: No Hx Influenza Vaccination: No Hx Pneumococcal Vaccination: No Review Of Systems Constitutional: Negative for: Fever, Chills Gastrointestinal: Negative for: Nausea, Vomiting, Diarrhea Psych: Negative for: Depression, Suicidal ideation Physical Exam - Physical Exam Appears: Non-toxic, No Acute Distress, Other (ETOH on breath) Skin: Normal Color, Warm, Dry Head: Normacephalic, Abrasion (Healing to nose and chin) Eye(s): bilateral: Normal Inspection, PERRL, EOMI Oral Mucosa: Moist Neck: Normal, Supple Chest: Symmetrical, No Tenderness Cardiovascular: Rhythm Regular, No Murmur Respiratory: Normal Breath Sounds, No Rales, No Rhonchi, No Wheezing Gastrointestinal/Abdominal: Soft, No Tenderness Neurological/Psych: Oriented x3, Normal Speech, Normal Cognition Medical Decision Making Medical Decision Making: Plan: * CT head * pt sleeping in nad. endorsed to dr cotter pending sobriety, reassessment, and final dispo Disposition - Disposition Disposition: HOME/ ROUTINE Disposition Time: 01:00 Condition: STABLE - Clinical Impression Clinical Impression: Alcohol abuse - Scribe Statement The provider has reviewed the documentation as recorded by the Scribe Benson Child All medical record entries made by the Scribe were at my direction and personally dictated by me. I have reviewed the chart and agree that the record accurately reflects my personal performance of the history, physical exam, medical decision making, and the department course for this patient. I have also personally directed, reviewed, and agree with the discharge instructions and disposition.
[2016-12-06 20:48] VITALS: RESP 18
--- NOTE | 2016-12-06 22:48 | CT ---
EXAM: CT Head Without Intravenous Contrast CLINICAL HISTORY: 56 years old, male; Injury or trauma; Fall; Initial encounter; Abrasion; Not specified TECHNIQUE: Axial computed tomography images of the head/brain without intravenous contrast. All CT scans at this facility use one or more dose reduction techniques, viz.: automated exposure control; ma/kV adjustment per patient size (including targeted exams where dose is matched to indication; i.e. head); or iterative reconstruction technique. Coronal and sagittal reformatted images were created and reviewed. COMPARISON: CT - HEAD W/O CONTRAST 12/05/2016 2:21:36 PM FINDINGS: Brain: [id number] atrophy. No intracranial hemorrhage. No mass. No edema. Ventricles: No hydrocephalus. Bones/joints: No acute fracture. Soft tissues: Mild LEFT scalp swelling. Vasculature: Mild atherosclerotic disease of intracranial arteries. Sinuses: Scattered minimal to mild mucosal thickening. Mastoid air cells: No mastoid effusion. Orbits: Unremarkable as visualized. IMPRESSION: 1. No intracranial hemorrhage. 2. Incidental/non-acute findings are described above.
[2016-12-07 04:26] VITALS: BP 116/66; PULSE 88; TEMP 98.5; O2SAT 100
== END 2016-12-07 05:26 | disposition home or self-care (01) ==
LOC: C.ER 20:28 → C.9OBSV 22:10
PROVIDERS: ADMIT Student in an Organized Health Care Education/Training Program; ATTEND Student in an Organized Health Care Education/Training Program
DX: F10.220 Alcohol dependence with intoxication, uncomplicated (principal); E11.9 Type 2 diabetes mellitus without complications; E05.00 Thyrotoxicosis with diffuse goiter without thyrotoxic crisis or storm; I10 Essential (primary) hypertension; E03.9 Hypothyroidism, unspecified; Z23 Encounter for immunization
CPT/HCPCS: 70450; 99284; G0378